=== PATIENT | female | born 1935 | race Caucasian/White ===

== ENCOUNTER 2017-05-27 18:42 | Inpatient (IN) ==
[2017-05-27] MEDS ORDERED: Acetaminophen 325 MG TABLET PO PRN (22:40)
[2017-05-27] MEDS ORDERED: Dextrose Gel 15 GM/37.5 ML TUBE PO PRN ×2 (22:44)
[2017-05-27] MEDS ORDERED: D5% in Water 1,000 ML IVC PRN (22:44)
[2017-05-27] MEDS ORDERED: *HR* Dextrose 50 % in Water (Syg) 50 ML SYRINGE IVP PRN (22:44)
--- NOTE | 2017-05-27 22:53 | Internal Med History&Physical ---
Date of Encounter: 05/27/17 Time of Encounter: 21:00 Assessment and Plan (1) Breast cancer Current visit: Yes Status: Acute Patient has breast cancer 10 years ago. Patient has a recent body with loss. CAT scan of abdomen and the pelvis on 05/22/17 shows most likely liver metastasis. - May consult oncology. Nonurgent. Daytime to call. - Consult palliative care - Continue supportive treatment. Qualifiers: Breast location: unspecified site of breast Estrogen receptor status: unspecified Patient sex: female Laterality: unspecified laterality Qualified Code(s): C50.919 - Malignant neoplasm of unspecified site of unspecified female breast (2) Rectal bleeding Current visit: Yes Status: Acute Patient has a rectal bleeding. Etiology is undetermined. Has a recent enema. - We will place patient on clear liquid diet. - IV fluid. - Closely monitor vitals and H&H - IV PPI twice a day - We will consult GI. (3) Excessive body weight loss Current visit: Yes Status: Acute Most likely due to late stage malignancy. We will consult dietitian. (4) Hypertension Current visit: Yes Status: Acute Continue home medications Qualifiers: Hypertension type: essential hypertension Qualified Code(s): I10 - Essential (primary) hypertension (5) Diabetes Current visit: Yes Status: Acute Will place patient on low-dose sliding-scale coverage Qualifiers: Diabetes mellitus type: type 2 Diabetes mellitus complication status: without complication Diabetes mellitus halfway insulin use: without reject opener and filler use Qualified Code(s): E11.9 - Type 2 diabetes mellitus without complications (6) UTI (urinary tract infection) Current visit: Yes Status: Acute Patient has minimal symptoms. Will continue Rocephin. Follow-up urine culture. Qualifiers: Urinary tract infection type: acute cystitis Hematuria presence: without hematuria Qualified Code(s): N30.00 - Acute cystitis without hematuria (7) Leukocytosis Current visit: Yes Status: Acute Patient has no fever. No signs of infection except mild UTI. Probably reactive. Continue follow-up CBC. Continue Rocephin. Qualifiers: Leukocytosis type: unspecified Qualified Code(s): D72.829 - Elevated white blood cell count, unspecified (8) DVT prophylaxis Current visit: Yes Status: Acute EPCD. No anti-coagulation because of rectal bleeding Internal Medicine - H&P: HPI Chief complaint: Rectal bleeding Admitted From: Home Plans for Post Hospital Care: Home History of present illness: Ms. Dumont is a 81 year old female with history of diabetes, hypertension, hyperlipidemia, breast cancer, and uterus cancer, presented to [facility] emergency room for rectal bleeding. Patient has constipation and was given enema yesterday in [facility] emergency room. Patient was found rectal bleeding with dark blood with clotting since today. The blood is mixed with stool. Patient denies abdominal pain, nausea, or vomiting. No fever. Patient has recent UTI and was treated with Rocephin by [facility]. Patient to report 50 pound body weight loss in last 2 months, with decreased appetite. Past Med Surg Social Fam HX - Past Medical History Medical history: diabetes, hypertension, malignancy - Past Surgical History Surgical History: hysterectomy - Social History Smokeless Tobacco Status: No Alcohol use: none - Family History Mother History Unknown: Yes Internal Medicine - H&P: Meds Doxycycline Monohydrate [Avidoxy] 100 mg PO BID 05/27/17 [History] Lactobacillus Acidophilus/Pect [Acidophilus-Pectin Capsule] 2 each PO QID [History] Lisinopril [Zestril] 10 mg PO DAILY 05/27/17 [History] Simvastatin [Zocor] 40 mg PO HS 05/27/17 [History] All Systems PM: A 10-system review of systems was performed and is negative for pertinent findings except as documented above in the HPI. - Constitutional Vitals: Temp Pulse Resp BP 97.4 F L 86 15 130/72 05/27/17 21:26 05/27/17 21:26 05/27/17 21:26 05/27/17 21:26 General appearance: Present: A&O X 3, no acute distress, answers questions appropriately - Head Head exam: Present: atraumatic, normocephalic - Eye Eye exam: Present: PERRL, conjuntiva pink, sclera anicteric Pupils: Present: PERRL - Neck Neck exam general surgery: Present: supple, trachea midline. Absent: lymphadenopathy - Respiratory Respiratory exam: Present: CTAB. Absent: accessory muscle use, rales, rhonchi, wheezes - Cardiovascular Cardiovascular exam: Present: RRR, +S1, +S2. Absent: diastolic murmur, gallop, rubs, systolic murmur - GI/Abdominal GI/Abdominal exam: Present: normal bowel sounds, soft, no peritoneal signs. Absent: distended, tenderness - Extremities Exam Extremities exam: Present: warm, radial pulses palpable and symmetrical. Absent : calf tenderness, cyanotic, pedal edema - Neurological Exam Neurological exam: Present: CN II-XII intact, oriented X3, no focal deficits. Absent: pronater drift, facial droop, speech deficit - Skin Skin exam: Present: dry, intact
[2017-05-27 23:13] LABS: Basophils % 0.2 %; Eosinophils % 0.1 %; Hemoglobin 11.6 g/dL (11.5-15.4); Immature Granulocytes % 1.1 % (0-4); Lymphocytes # 1.1 K/mcL (0.6-4.6); Lymphocytes % 5.6 %; Mean Corpuscular HGB Conc 33.1 g/dL (31.6-35.5); Mean Corpuscular Hemoglobin 30.9 pg (28.0-33.3); Mean Corpuscular Volume 93.3 fL (83.0-100.0); Mean Platelet Volume 12.4 fL (9.4-12.4); Monocytes # 0.8 K/mcL (0.0-1.3); Neutrophils # 17.2 K/mcL (1.6-8.9); Platelet Count 144 K/mcL (140-400); Red Blood Count 3.75 M/mcL (3.82-4.97); Red Cell Distribution Width 17.2 % (11.5-14.5)
[2017-05-27 23:18] LABS: INR 2.1; Prothrombin Time 23.2 Seconds (9.4-12.1)
[2017-05-28 00:02] LABS: Albumin 2.2 g/dL (3.5-5.7); Albumin/Globulin Ratio 0.7 (1.1-2.2); Bilirubin,Total 3.2 mg/dL (0.3-1.0); Calcium 7.9 mg/dL (8.6-10.3); Globulin 3.2 g/dL (2.4-3.5); Potassium 4.6 mEq/L (3.5-5.1); Total Protein 5.4 g/dL (6.4-8.9)
[2017-05-28] MEDS: 0.9 % Sodium Chloride 1,000 ML IVC SCH ×2 (01:06→11:38)
[2017-05-28] MEDS: Pantoprazole 40 MG VIAL IVP SCH ×2 (05:18→17:29)
[2017-05-28 07:20] LABS: Basophils % 0.2 %; Eosinophils % 0.1 %; Hematocrit 32.9 % (35.3-44.9); Hemoglobin 10.5 g/dL (11.5-15.4); Immature Granulocytes % 1.6 % (0-4); Lymphocytes # 1.1 K/mcL (0.6-4.6); Lymphocytes % 5.9 %; Mean Corpuscular HGB Conc 31.9 g/dL (31.6-35.5); Mean Corpuscular Hemoglobin 30.1 pg (28.0-33.3); Mean Corpuscular Volume 94.3 fL (83.0-100.0); Monocytes # 0.8 K/mcL (0.0-1.3); Monocytes % 4.6 %; Platelet Count 124 K/mcL (140-400); Red Blood Count 3.49 M/mcL (3.82-4.97); Red Cell Distribution Width 17.3 % (11.5-14.5); Segmented Neutrophils % 87.6 %
[2017-05-28 07:33] LABS: Calcium 7.5 mg/dL (8.6-10.3); Magnesium 1.5 mg/dL (1.6-2.6); Potassium 4.7 mEq/L (3.5-5.1)
[2017-05-28] MEDS: Lactobacillus 1 EACH CAP.SPRINK PO SCH ×4 (07:37→22:02)
[2017-05-28] MEDS: cefTRIAXone 1,000 MG in Water for inj. (sterile) 10 ML IVP SCH (07:37)
[2017-05-28] MEDS: Insulin LISPRO 300 UNITS/3 ML VIAL SQ SCH ×4 (07:45→22:02)
[2017-05-28 09:25] LABS: INR 2.2; Prothrombin Time 24.3 Seconds (9.4-12.1)
[2017-05-28 09:34] LABS: Albumin 2.1 g/dL (3.5-5.7); Albumin/Globulin Ratio 0.7 (1.1-2.2); Bilirubin,Direct 1.6 mg/dL (0.0-0.2); Bilirubin,Total 2.6 mg/dL (0.3-1.0); Total Protein 5.1 g/dL (6.4-8.9)
--- NOTE | 2017-05-28 09:53 | Palliative - Consult Note ---
Date of Encounter: 05/28/17 Time of Encounter: 10:00 - Assessment and Plan (1) Counseling regarding advanced care planning and goals of care Current Visit: Yes Status: Acute Assessment and plan: Patient has hearing deficit making it difficult to communicate. Son, Neal was here, but left before I was able to meet with him. I spoke with him via phone, he described conversation with GI - and he thought this conversation was with the hospitalist overseeing her care, so he left. He did leave her hearing aid, so that is helping with communication, however, pt is wanting all information given to Neal. He will be returning to hospital tomorrow at 1100. I notified Dr. Olivarez, hospitalist regarding this matter. Patient states she has passport services Mon-Fri. States son does not work, and is living with her. Will f/u in am. (2) Constipation Current Visit: Yes Status: Acute Assessment and plan: Rectal bleeding has subsided. GI consult reviewed, she has been started on Lactulose BID. Monitor BM's. Labwork pending. Qualifiers: Constipation type: unspecified constipation type Qualified Code(s): K59.00 - Constipation, unspecified (3) Breast cancer Current Visit: Yes Status: Acute Qualifiers: Breast location: unspecified site of breast Estrogen receptor status: unspecified Patient sex: female Laterality: unspecified laterality Qualified Code(s): C50.919 - Malignant neoplasm of unspecified site of unspecified female breast (4) UTI (urinary tract infection) Current Visit: Yes Status: Acute Assessment and plan: Urine via straight cath obtained today. Currently on Ceftriaxone. Qualifiers: Urinary tract infection type: acute cystitis Hematuria presence: without hematuria Qualified Code(s): N30.00 - Acute cystitis without hematuria Palliative-CN HPI - Data of Consult Consult date: 05/28/17 Requesting Physician: Harris Olivarez Primary Care Provider: Anais Good, - Consult Narrative History of present illness: Ms. Dumont is a 81 year old female with a history of breast cancer 10 years ago who was transferred here from [facility], where she presented for rectal bleeding. By chart review, she has history of diabetes, hypertension, hyperlipidemia, breast cancer, and uterus cancer, Patient has constipation and was given enema yesterday in [facility] emergency room. Patient was found to have rectal bleeding with dark blood with clotting. Patient denies abdominal pain, nausea, or vomiting. She was recently diagnosied with UTI and was treated with Rocephin by Ana. Patient to report 50 pound body weight loss in last 2 months, with decreased appetite. CT results with innumerable densities to liver suspicious for metastatic disease. Upon my visit, she is resting quietly. Severe hearing deficit and has difficulty reading writing. No family is present. . CC: Harris Olivarez Past Med Surg Social Fam HX - Past Medical History Medical history: diabetes, hypertension, malignancy - Past Surgical History Surgical History: hysterectomy - Social History Smoking Status: Unknown if ever smoked Smokeless Tobacco Status: No Alcohol use: none Drug use: unknown - Family History Mother History Unknown: Yes Medications and Allergies Lactobacillus Acidophilus/Pect [Acidophilus-Pectin Capsule] 2 each PO QID [History] Lisinopril [Zestril] 10 mg PO DAILY 05/27/17 [History] Simvastatin [Zocor] 40 mg PO HS 05/27/17 [History] Aspirin [Lo-Dose Aspirin EC] 81 mg PO DAILY 05/28/17 [History] Potassium Chloride [Klor-Con Sprinkle] 10 meq PO BID 05/28/17 [History] 3 Allergy/AdvReac Type Severity Reaction Status Date / Time No Known Drug Allergies Allergy Abdominal Verified 05/28/17 00:55 Pain ROS unobtainable: other (Difficulty establishing r/t heariing and visual impairment) Palliative Care-Exam - Constitutional Vitals: Temp Pulse Resp BP Pulse Ox 98.2 F 82 16 118/72 94 05/28/17 07:48 05/28/17 07:48 05/28/17 07:48 05/28/17 07:48 05/28/17 07:48 General appearance: Present: no acute distress - Head Head Exam: Present: normal inspection, normocephalic - Eye Eye exam: Present: normal appearance - ENT ENT exam: Present: mucous membranes moist - Respiratory Respiratory exam: Present: decreased breath sounds, CTAB - Cardiovascular Cardiovascular exam: Present: +S1, +S2 - GI/Abdominal Exam GI/Abdominal exam: Present: normal bowel sounds, soft - Additional comments: Urine cloudy and pink tinged - straight cath just performed - Extremities Exam Additional comments: Purplish discoloration to toes and bottoms of feet, cool to touch - Neurological Exam Neurological exam: Present: alert, oriented X3, strengths equal and symetr throughout Additional comments: Difficult to follow commands r/t hearing deficit. - Skin Skin exam: Present: dry, pallor, warm Internal Medicine - CN: Reslt - Labs CBC & Chem 7: 05/28/17 06:52 05/28/17 06:52 Labs: Short CBC 05/27/17 05/28/17 Range/Units 23:02 06:52 WBC 19.3 H 18.2 H (4.3-11.1) K/mcL Hgb 11.6 10.5 L (11.5-15.4) g/dL Hct 35.0 L 32.9 L (35.3-44.9) % Plt Count 144 124 L (140-400) K/mcL Neutrophils # 17.2 H 16.0 H (1.6-8.9) K/mcL BMP 05/27/17 05/28/17 23:02 06:52 Sodium 132 L 134 L Potassium 4.6 4.7 Chloride 100 102 Carbon Dioxide 19 L 20 L BUN 44 H 46 H Creatinine 1.50 H 1.64 H Glucose 194 H 180 H Calcium 7.9 L 7.5 L Liver Function 05/27/17 05/28/17 Range/Units 23:02 09:04 Total Bilirubin 3.2 H 2.6 H (0.3-1.0) mg/dL Direct Bilirubin 1.6 H (0.0-0.2) mg/dL AST 267 H 198 H (13-39) Units/L ALT 122 H 117 H (7-52) Units/L Alkaline Phosphatase 574 H 483 H (34-104) Units/L Albumin 2.2 L 2.1 L (3.5-5.7) g/dL - ABG Interpretation ABG results: PT/INR, D-dimer PT 24.3 Seconds (9.4-12.1) H 05/28/17 09:04 Consult Discharge Plan - Plan Referrals: Anais Good CNP [Primary Care Provider] - Palliative Quality Palliative Quality: Screen for Code Status: NA (When family available), Screen for Goals of Care: NA, Screen for Pain: Yes, If Pain Regimen Started, Initiate Bowel Regimen: NA, Screen for Nausea/Vomitting: Yes Code Status: 05/27/17 22:40 Resuscitation Status: Active [RES] Routine Comment: Resuscitation Status: Full Code
--- NOTE | 2017-05-28 10:06 | Internal Med Progress Note ---
Date of Encounter: 05/28/17 Time of Encounter: 10:00 - Assessment and plan (1) Rectal bleeding Current Visit: Yes Status: Acute Assessment and plan: GI is consulted. Her hemoglobin did drop cardiograms since admission. She is also been receiving IV fluids. Continue to monitor her hemodynamics. Continue with IV PPI. Continue with IV fluids. (2) LICHA (acute kidney injury) Current Visit: Yes Status: Acute Assessment and plan: Continue with IV fluids. Check labs in the morning. Avoid nephrotoxins. Possibly multifactorial from her urinary tract infection versus volume loss from the rectal bleed. We will continue to monitor. (3) Breast cancer Current Visit: Yes Status: Acute Assessment and plan: Not exactly sure what the circumstances of this are. Hard to obtain any history from the patient. Based on documentation this is been diagnosed about 10 years ago. She now has metastasis as well. Palliative is following. Qualifiers: Breast location: unspecified site of breast Estrogen receptor status: unspecified Patient sex: female Laterality: unspecified laterality Qualified Code(s): C50.919 - Malignant neoplasm of unspecified site of unspecified female breast (4) Hypertension Current Visit: Yes Status: Acute Assessment and plan: Blood pressure is stable. I will hold her lisinopril given that acute kidney injury as well as the borderline blood pressure. Qualifiers: Hypertension type: essential hypertension Qualified Code(s): I10 - Essential (primary) hypertension (5) Diabetes Current Visit: Yes Status: Acute Assessment and plan: Continue with insulin sliding scale. Continue with Accu-Cheks. Qualifiers: Diabetes mellitus type: type 2 Diabetes mellitus complication status: without complication Diabetes mellitus intermediate project manager insulin use: without intermediate project manager use Qualified Code(s): E11.9 - Type 2 diabetes mellitus without complications (6) UTI (urinary tract infection) Current Visit: Yes Status: Acute Assessment and plan: Apparently she has been treated with ceftriaxone at the outside facility. She has been continued on that here. I will check a urinalysis in our system here. She does have an elevated white count. It is hard to obtain a history regarding urinary symptoms given her hearing difficulties. Qualifiers: Urinary tract infection type: acute cystitis Hematuria presence: without hematuria Qualified Code(s): N30.00 - Acute cystitis without hematuria (7) DVT prophylaxis Current Visit: Yes Status: Acute Assessment and plan: SCDs - Subjective Interval history: Patient was seen and examined. The patient unfortunately is very hard of hearing and does not have her hearing aids. I even tried writing some stuff on my phone to have some interaction with the patient but unfortunately she is also troubled with vision. She is admitted last night with rectal bleed. She is also admitted with a urinary tract infection. She has lost about 50 pounds based on documentation over very short period of time. She has a history of breast cancer with metastasis to liver. She has been afebrile. - Constitutional Vitals: Temp Pulse Resp BP Pulse Ox 98.2 F 82 16 118/72 94 05/28/17 07:48 05/28/17 07:48 05/28/17 07:48 05/28/17 07:48 05/28/17 07:48 General appearance: Present: A&O X 3, no acute distress, answers questions appropriately Exam: GEN: NAD. Very hard of hearing. CVS: RRR. S1, S2, No m/r/g RESP: CTAB ABD: Soft, NT, ND, +BS EXT: No edema. 2+ DP. No rashes NEURO: Nonfocal Internal Medicine: Result - Labs CBC & Chem 7: 05/28/17 06:52 05/28/17 06:52 Labs: Short CBC 05/27/17 05/28/17 Range/Units 23:02 06:52 WBC 19.3 H 18.2 H (4.3-11.1) K/mcL Hgb 11.6 10.5 L (11.5-15.4) g/dL Hct 35.0 L 32.9 L (35.3-44.9) % Plt Count 144 124 L (140-400) K/mcL Neutrophils # 17.2 H 16.0 H (1.6-8.9) K/mcL BMP 05/27/17 05/28/17 23:02 06:52 Sodium 132 L 134 L Potassium 4.6 4.7 Chloride 100 102 Carbon Dioxide 19 L 20 L BUN 44 H 46 H Creatinine 1.50 H 1.64 H Glucose 194 H 180 H Calcium 7.9 L 7.5 L Liver Function 05/27/17 05/28/17 Range/Units 23:02 09:04 Total Bilirubin 3.2 H 2.6 H (0.3-1.0) mg/dL Direct Bilirubin 1.6 H (0.0-0.2) mg/dL AST 267 H 198 H (13-39) Units/L ALT 122 H 117 H (7-52) Units/L Alkaline Phosphatase 574 H 483 H (34-104) Units/L Albumin 2.2 L 2.1 L (3.5-5.7) g/dL - ABG Interpretation ABG results: PT/INR, D-dimer PT 24.3 Seconds (9.4-12.1) H 05/28/17 09:04 - VTE Documentation of Mechanical Device: Intermittent pneumatic compression device Consult Discharge Plan - Plan Referrals: Anais Good, PROFESSOR OF FAMILY MEDICINE [Primary Care Provider] -
[2017-05-28 10:16] LABS: Bilirubin,Urine Moderate (Negative); Blood,Urine Large (Negative); Clarity,Urine Turbid (Clear); Glucose,Urine (UA) Normal (Normal); Ketones,Urine Trace mg/dL (Negative); Leukocyte Esterase,Urine Large (Negative); Nitrite,Urine Positive (Negative); PH,Urine 5.5 pH Units (5.0-8.0); Protein,Urine 100 mg/dL (Neg-Trace); Specific Gravity,Urine 1.024 (1.010-1.025); Urobilinogen,Urine Normal (Normal)
[2017-05-28 10:18] LABS: Bacteria,Urine Many per hpf (None-Few); Squamous Epithelial Cell,Urine Many per lpf (None-Few); WBC,Urine TNTC per hpf (0-3)
[2017-05-28 10:19] LABS: Color,Urine Brown (Yellow)
[2017-05-28 10:39] LABS: RBC,Urine 0-3 per hpf (0-3)
[2017-05-28 10:41] LABS: Granular Casts,Urine Present per lpf (None Seen); Hyaline Casts,Urine None Seen per lpf (None-Few); Yeast,Urine Present per hpf (None Seen)
[2017-05-28] MEDS ORDERED: Magnesium Oxide 400 MG TABLET PO STA (11:14)
--- NOTE | 2017-05-28 11:59 | Gastroenterology Consult Note ---
<En Lundberg Lesly - Last Filed: 05/28/17 11:51> Date of Encounter: 05/28/17 Time of Encounter: 10:50 - Assessment and plan (1) Rectal bleeding Current Visit: Yes Status: Acute Assessment and plan: Rectal bleeding likely due to trauma of enema and her constipation. Will hold on colonoscopy at this time. If rectal bleeding continues, will consider colonoscopy at that time. (2) Constipation Current Visit: Yes Status: Acute Assessment and plan: Rectal bleeding likely secondary to enema administration at [facility] ED due to constipation. Start lactulose. Qualifiers: Qualified Code(s): K59.00 - Constipation, unspecified (3) Breast cancer Current Visit: Yes Status: Acute Assessment and plan: CT A/P on 05/22 shows innumerable hypodensities in the liver most concerning for metastatic disease, cystic lesion in tail of pancreas and one in body of pancreas which could represent sequela of chronic pancreatitis or IPMN of pancreas. Will hold on EUS at this time. Qualifiers: Breast location: unspecified site of breast Estrogen receptor status: unspecified Patient sex: female Laterality: unspecified laterality Qualified Code(s): C50.919 - Malignant neoplasm of unspecified site of unspecified female breast (4) Elevated LFTs Current Visit: Yes Status: Acute Assessment and plan: LFTs elevated due to metastatic cancer. - Time Spent With Patient Total time spent is greater than 50% in coordination of care (as documented) at patient's floor/unit and/or counseling patient: GI History of Present Illness - Data of Consult Patient: new to practice Consult date: 05/28/17 Requesting Physician: Harris Olivarez - Consult Narrative Reason for consult: Rectal bleeding History of present illness: Ms. Dumont is a 81 year old female with PMHx of DM, HTN, HLD, breast cancer, uterine cancer who presented to [facility] ED for rectal bleeding and was given an enema. Pt is hard of hearing and visually impaired. She does not have her hearing aids and is unable to see well enough to read. History obtain from chart review and I spoke to her son on the phone. She reports rectal bleeding with dark blood and clots. She has been complaining of constipation, per her son , and that is why she was given an enema at the [facility] ED. She denies fever, chest pain, abdominal pain, nausea, vomiting, diarrhea, or constipation. She reports a 50 lbs weight loss in the past [address] A/P on 05/22 shows innumerable hypodensities in the liver most concerning for metastatic disease, cystic lesion in tail of pancreas and one in body of pancreas which could represent sequela of chronic pancreatitis or IPMN of pancreas. Procedures: None NSAIDs: ASA Anticoagulation: None Past Med Surg Social Fam HX - Past Medical History Medical history: diabetes, hypertension, malignancy - Past Surgical History Surgical History: hysterectomy - Social History Smoking Status: Unknown if ever smoked Smokeless Tobacco Status: No Alcohol use: none Drug use: unknown - Family History Mother History Unknown: Yes ROS unobtainable: other Review of Systems: pt unable to hear - Constitutional Vitals: Temp Pulse Resp BP Pulse Ox 97.6 F 75 16 121/73 94 05/28/17 11:37 05/28/17 11:37 05/28/17 11:37 05/28/17 11:37 05/28/17 11:37 General appearance: Present: cooperative, A&O X 3, no acute distress, answers questions appropriately - Head Head exam: Present: atraumatic, normocephalic - Eye Eye exam: Present: normal appearance, sclera anicteric - ENT ENT exam: Present: mucous membranes dry - Neck Neck exam general surgery: Present: normal inspection, trachea midline - Respiratory Respiratory exam: Present: CTAB. Absent: decreased breath sounds - Cardiovascular Cardiovascular exam: Present: RRR, +S1, +S2 - GI/Abdominal GI/Abdominal exam: Present: soft, no peritoneal signs. Absent: distended, firm , guarding, tenderness - Rectal Rectal exam: Present: deferred - Extremities Exam Extremities exam: Present: warm - Neurological Exam Neurological exam: Present: no focal deficits - Psychiatric Psychiatric exam: Present: normal affect, normal mood - Skin Skin exam: Present: dry, intact, normal color, warm Results - Labs CBC & Chem 7: 05/28/17 06:52 05/28/17 06:52 Labs: Last Result Calcium 7.5 mg/dL (8.6-10.3) L 05/28/17 06:52 Entire Visit Hgb 10.5 g/dL (11.5-15.4) L 05/28/17 06:52 Hct 32.9 % (35.3-44.9) L 05/28/17 06:52 PT 24.3 Seconds (9.4-12.1) H 05/28/17 09:04 Total Bilirubin 2.6 mg/dL (0.3-1.0) H 05/28/17 09:04 AST 198 Units/L (13-39) H 05/28/17 09:04 ALT 117 Units/L (7-52) H 05/28/17 09:04 - ABG ABG results: PT/INR, D-dimer PT 24.3 Seconds (9.4-12.1) H 05/28/17 09:04 Consult Discharge Plan - Plan Referrals: Anais Good, HEAD OF HISTORY [Primary Care Provider] - <Angelica Obrien - Last Filed: 05/28/17 17:50> Date of Encounter: 05/28/17 Time of Encounter: 13:30 - Time Spent With Patient Total time spent is greater than 50% in coordination of care (as documented) at patient's floor/unit and/or counseling patient: GI History of Present Illness - Data of Consult Requesting Physician: Harris Olivarez - Consult Narrative History of present illness: Ms. Dumont is a 81 year old female - Constitutional Vitals: Temp Pulse Resp BP Pulse Ox 97.3 F L 82 16 91/53 97 05/28/17 15:20 05/28/17 15:20 05/28/17 15:20 05/28/17 15:20 05/28/17 15:20 Results - Labs CBC & Chem 7: 05/28/17 06:52 05/28/17 06:52 Labs: Last Result Calcium 7.5 mg/dL (8.6-10.3) L 05/28/17 06:52 Entire Visit Hgb 10.5 g/dL (11.5-15.4) L 05/28/17 06:52 Hct 32.9 % (35.3-44.9) L 05/28/17 06:52 PT 24.3 Seconds (9.4-12.1) H 05/28/17 09:04 Total Bilirubin 2.6 mg/dL (0.3-1.0) H 05/28/17 09:04 AST 198 Units/L (13-39) H 05/28/17 09:04 ALT 117 Units/L (7-52) H 05/28/17 09:04 - ABG ABG results: PT/INR, D-dimer PT 24.3 Seconds (9.4-12.1) H 05/28/17 09:04 - Attending Attestation I examined this patient and my medical decision-making was reviewed with the Resident Physician. I agree with the documented findings, disposition and treatment plan as described except to the extent set forth below.
[2017-05-28] MEDS: Lactulose Oral Soln 20 GM/30 ML UDC PO SCH ×2 (12:43→22:02)
[2017-05-29 04:47] LABS: Basophils % 0.2 %; Eosinophils # 0.1 K/mcL (0.0-0.6); Eosinophils % 0.7 %; Hematocrit 31.2 % (35.3-44.9); Hemoglobin 10.2 g/dL (11.5-15.4); Lymphocytes % 7.3 %; Mean Corpuscular HGB Conc 32.7 g/dL (31.6-35.5); Mean Corpuscular Hemoglobin 30.6 pg (28.0-33.3); Mean Corpuscular Volume 93.7 fL (83.0-100.0); Mean Platelet Volume 12.5 fL (9.4-12.4); Monocytes # 0.8 K/mcL (0.0-1.3); Monocytes % 5.7 %; Platelet Count 100 K/mcL (140-400); Red Blood Count 3.33 M/mcL (3.82-4.97); Red Cell Distribution Width 17.5 % (11.5-14.5); Segmented Neutrophils % 84.1 %
[2017-05-29 05:04] LABS: Calcium 7.4 mg/dL (8.6-10.3); Potassium 4.6 mEq/L (3.5-5.1)
[2017-05-29] MEDS: Pantoprazole 40 MG VIAL IVP SCH (06:23)
[2017-05-29] MEDS: Insulin LISPRO 300 UNITS/3 ML VIAL SQ SCH ×4 (08:09→20:23)
[2017-05-29] MEDS: Lactulose Oral Soln 20 GM/30 ML UDC PO SCH ×2 (08:11→19:27)
[2017-05-29] MEDS: Lactobacillus 1 EACH CAP.SPRINK PO SCH ×4 (08:11→19:27)
[2017-05-29] MEDS: cefTRIAXone 1,000 MG in Water for inj. (sterile) 10 ML IVP SCH (08:11)
[2017-05-29] MEDS ORDERED: 0.9 % Sodium Chloride 1,000 ML IVC ONE (08:55)
--- NOTE | 2017-05-29 08:59 | Internal Med Progress Note ---
Date of Encounter: 05/29/17 Time of Encounter: 09:00 - Assessment and plan (1) Rectal bleeding Current Visit: Yes Status: Acute Assessment and plan: GI is consulted. Her hemoglobin is stable today. Hemoglobin was 10.5 yesterday. Today it is 10.2. No plans for any GI intervention as they believe this is likely trauma from enema.. Continue to monitor her hemodynamics. Stop IV PPI. (2) LICHA (acute kidney injury) Current Visit: Yes Status: Acute Assessment and plan: This has worsened today. We will give her a liter of normal saline bolus given the low blood pressure. We will keep on 100 mL an hour normal saline. Not exactly sure if she was receiving this. Check labs in the morning. Avoid nephrotoxins. If continues to worsen we will check a renal ultrasound. May need to consult nephrology. Possibly multifactorial from her urinary tract infection versus volume loss from the rectal bleed. We will continue to monitor. 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 Palliative his family today. Based on documentation this is been diagnosed about 10 years ago. Qualifiers: Breast location: unspecified site of breast Estrogen receptor status: unspecified Patient sex: female Laterality: unspecified laterality Qualified Code(s): C50.919 - Malignant neoplasm of unspecified site of unspecified female breast (4) Hypertension Current Visit: Yes Status: Acute Assessment and plan: Blood pressure is on the lower side. Continue to hold lisinopril. 1 L bolus this morning. Qualifiers: Hypertension type: essential hypertension Qualified Code(s): I10 - Essential (primary) hypertension (5) Diabetes Current Visit: Yes Status: Acute Assessment and plan: Continue with insulin sliding scale. Continue with Accu-Cheks. Qualifiers: Diabetes mellitus type: type 2 Diabetes mellitus complication status: without complication Diabetes mellitus residential insulin use: without medical terminologist use Qualified Code(s): E11.9 - Type 2 diabetes mellitus without complications (6) UTI (urinary tract infection) Current Visit: Yes Status: Acute Assessment and plan: Apparently she has been treated with ceftriaxone at the outside facility. Ceftriaxone was continued here. Her urinalysis still looks dirty. We will follow up the cultures. White count is improving.. Qualifiers: Urinary tract infection type: acute cystitis Hematuria presence: without hematuria Qualified Code(s): N30.00 - Acute cystitis without hematuria (7) DVT prophylaxis Current Visit: Yes Status: Acute Assessment and plan: SCDs - Subjective Interval history: Patient was seen and examined. No acute events. She was seen by GI and palliative yesterday. There is no plans for any GI intervention. Family meeting is planned today. She has been afebrile. She feels well. She has lost about 50 pounds based on documentation over very short period of time. She has a history of breast cancer with metastasis to liver. She has been afebrile. - Constitutional Vitals: Temp Pulse Resp BP Pulse Ox 98.3 F 61 13 93/58 96 05/29/17 07:30 05/29/17 07:30 05/29/17 07:30 05/29/17 07:30 05/29/17 07:30 General appearance: Present: A&O X 3, no acute distress, answers questions appropriately Exam: GEN: NAD. CVS: RRR. S1, S2, No m/r/g RESP: CTAB ABD: Soft, NT, ND, +BS EXT: No edema. 2+ DP. No rashes NEURO: Nonfocal Internal Medicine: Result - Labs CBC & Chem 7: 05/29/17 04:23 05/29/17 04:23 Labs: Short CBC 05/29/17 Range/Units 04:23 WBC 14.3 H (4.3-11.1) K/mcL Hgb 10.2 L (11.5-15.4) g/dL Hct 31.2 L (35.3-44.9) % Plt Count 100 L (140-400) K/mcL Neutrophils # 12.0 H (1.6-8.9) K/mcL BMP 05/29/17 04:23 Sodium 134 L Potassium 4.6 Chloride 105 Carbon Dioxide 16 L BUN 52 H Creatinine 1.75 H Glucose 156 H Calcium 7.4 L Liver Function 05/28/17 Range/Units 09:04 Total Bilirubin 2.6 H (0.3-1.0) mg/dL Direct Bilirubin 1.6 H (0.0-0.2) mg/dL AST 198 H (13-39) Units/L ALT 117 H (7-52) Units/L Alkaline Phosphatase 483 H (34-104) Units/L Albumin 2.1 L (3.5-5.7) g/dL Urine 05/28/17 Range/Units 09:55 Urine Color Brown (Yellow) Urine Clarity Turbid A (Clear) Urine pH 5.5 (5.0-8.0) pH Units Ur Specific [place] 1.024 (1.010-1.025) Urine Protein 100 H (Neg-Trace) mg/dL Urine Glucose (UA) Normal (Normal) mg/dL - ABG Interpretation ABG results: PT/INR, D-dimer PT 24.3 Seconds (9.4-12.1) H 05/28/17 09:04 - VTE Documentation of Mechanical Device: Intermittent pneumatic compression device Consult Discharge Plan - Plan Referrals: Anais Good CNP [Primary Care Provider] -
[2017-05-29] MEDS: 0.9 % Sodium Chloride 1,000 ML IVC SCH (10:25)
--- NOTE | 2017-05-29 11:43 | Palliative Progress Note ---
Date of Encounter: 05/29/17 Time of Encounter: 11:30 - Assessment and plan (1) Counseling regarding advanced care planning and goals of care Current Visit: Yes Status: Acute Assessment and plan: Long discussion with pt/son relaying information regarding CT scan results. They were both quite emotional. Son discussed that Dr. Gil/Dr. Patiño cared for her with her breast cancer 10 years ago and she had radiation, but did not desire chemotherapy. They would like to see/discuss with oncology findings. I did tell them that any treatments options may be limited by her performance status. Karnofsky performance scale of 40-50%. Consulted oncology and discussed pt case with Christine Bronson, EMMA [facility]. Explained although pt alert/oriented, she does want son Neal involved in conversations/decisions. Nael phone # [phone]. I did not discuss code status today - they were quite overwhelmed with conversation, but will continue to see and have discussions. Notified Dr. Olivarez. (2) Constipation Current Visit: Yes Status: Acute Assessment and plan: Continues with Lactulose BID. Monitor. Qualifiers: Constipation type: unspecified constipation type Qualified Code(s): K59.00 - Constipation, unspecified (3) Breast cancer Current Visit: Yes Status: Acute Qualifiers: Breast location: unspecified site of breast Estrogen receptor status: unspecified Patient sex: female Laterality: unspecified laterality Qualified Code(s): C50.919 - Malignant neoplasm of unspecified site of unspecified female breast (4) UTI (urinary tract infection) Current Visit: Yes Status: Acute Assessment and plan: Continues with IV antibiotics per hospitalist - final culture results pending. Qualifiers: Urinary tract infection type: acute cystitis Hematuria presence: without hematuria Qualified Code(s): N30.00 - Acute cystitis without hematuria - Time Spent With Patient Total time spent is greater than 50% in coordination of care (as documented) at patient's floor/unit and/or counseling patient: 25 - 35 minutes - Subjective Interval history: Patient awake and alert. Son at bedside. She denies any pain or discomfort other than tailbone. Continues with IV Antibiotic/fluids for UTI/LICHA. - Constitutional Vitals: Abnormal lab results WBC 14.3 K/mcL (4.3-11.1) H 05/29/17 04:23 RBC 3.33 M/mcL (3.82-4.97) L 05/29/17 04:23 Hgb 10.2 g/dL (11.5-15.4) L 05/29/17 04:23 Hct 31.2 % (35.3-44.9) L 05/29/17 04:23 RDW 17.5 % (11.5-14.5) H 05/29/17 04:23 Plt Count 100 K/mcL (140-400) L 05/29/17 04:23 MPV 12.5 fL (9.4-12.4) H 05/29/17 04:23 Neutrophils # 12.0 K/mcL (1.6-8.9) H 05/29/17 04:23 PT 24.3 Seconds (9.4-12.1) H 05/28/17 09:04 Sodium 134 mEq/L (136-145) L 05/29/17 04:23 Carbon Dioxide 16 mEq/L (23-29) L 05/29/17 04:23 BUN 52 mg/dL (8-23) H 05/29/17 04:23 Creatinine 1.75 mg/dL (0.60-1.20) H 05/29/17 04:23 Est GFR ( Amer) 34 (> 60) L 05/29/17 04:23 Est GFR (Non-Af Amer) 28 (> 60) L 05/29/17 04:23 BUN/Creatinine Ratio 30 (6-26) H 05/29/17 04:23 Glucose 156 mg/dL (70-105) H 05/29/17 04:23 Calcium 7.4 mg/dL (8.6-10.3) L 05/29/17 04:23 Magnesium 1.5 mg/dL (1.6-2.6) L 05/28/17 06:52 Total Bilirubin 2.6 mg/dL (0.3-1.0) H 05/28/17 09:04 Direct Bilirubin 1.6 mg/dL (0.0-0.2) H 05/28/17 09:04 AST 198 Units/L (13-39) H 05/28/17 09:04 ALT 117 Units/L (7-52) H 05/28/17 09:04 Alkaline Phosphatase 483 Units/L (34-104) H 05/28/17 09:04 Serum Total Protein 5.1 g/dL (6.4-8.9) L 05/28/17 09:04 Albumin 2.1 g/dL (3.5-5.7) L 05/28/17 09:04 Albumin/Globulin Ratio 0.7 (1.1-2.2) L 05/28/17 09:04 CA 19-9 Antigen 52825 U/mL (0-37) H 05/28/17 09:04 Urine Clarity Turbid (Clear) A 05/28/17 09:55 Urine Protein 100 mg/dL (Neg-Trace) H 05/28/17 09:55 Urine Ketones Trace mg/dL (Negative) H 05/28/17 09:55 Urine Blood Large (Negative) H 05/28/17 09:55 Urine Nitrite Positive (Negative) A 05/28/17 09:55 Urine Bilirubin Moderate (Negative) H 05/28/17 09:55 Ur Leukocyte Esterase Large (Negative) H 05/28/17 09:55 Urine Microscopic WBC TNTC per hpf (0-3) H 05/28/17 09:55 Ur Squamous Epith Cells Many per lpf (None-Few) H 05/28/17 09:55 Urine Bacteria Many per hpf (None-Few) H 05/28/17 09:55 Granular Casts Present per lpf (None Seen) H 05/28/17 09:55 Urine Yeast Present per hpf (None Seen) H 05/28/17 09:55 General appearance: Present: no acute distress - Respiratory Respiratory exam: Present: decreased breath sounds, CTAB - Cardiovascular Cardiovascular exam: Present: +S1, +S2 - GI/Abdominal GI/Abdominal exam: Present: distended, normal bowel sounds, soft - Extremities Exam Extremities exam: Present: normal capillary refill, normal inspection - Neurological Exam Neurological exam: Present: alert, oriented X3, strengths equal and symetr throughout - Skin Skin exam: Present: dry, pallor, warm Palliative Quality Palliative Quality: Screen for Code Status: NA (When family available), Screen for Goals of Care: NA, Screen for Pain: Yes, If Pain Regimen Started, Initiate Bowel Regimen: NA, Screen for Nausea/Vomitting: Yes Code Status: 05/27/17 22:40 Resuscitation Status: Active [RES] Routine Comment: Resuscitation Status: Full Code - Labs CBC & Chem 7: 05/29/17 04:23 05/29/17 04:23 Labs: Laboratory Results - last 24 hr 05/28/17 05/28/17 05/28/17 07:43 09:04 09:04 WBC RBC Hgb Hct MCV MCH MCHC RDW Plt Count MPV Immature Gran % Seg Neutrophils % Lymphocytes % Monocytes % Eosinophils % Basophils % Neutrophils # Lymphocytes # Monocytes # Eosinophils # Basophils # Sodium Potassium Chloride Carbon Dioxide BUN Creatinine Est GFR ( Amer) Est GFR (Non-Af Amer) BUN/Creatinine Ratio Glucose POC Glucose 180 H Calculated Osmolality Calcium Tumor Marker AFP 2 CA 19-9 Antigen 30338 H 05/28/17 05/28/17 05/28/17 11:34 16:47 21:16 WBC RBC Hgb Hct MCV MCH MCHC RDW Plt Count MPV Immature Gran % Seg Neutrophils % Lymphocytes % Monocytes % Eosinophils % Basophils % Neutrophils # Lymphocytes # Monocytes # Eosinophils # Basophils # Sodium Potassium Chloride Carbon Dioxide BUN Creatinine Est GFR ( Amer) Est GFR (Non-Af Amer) BUN/Creatinine Ratio Glucose POC Glucose 111 H 104 H 121 H Calculated Osmolality Calcium Tumor Marker AFP CA 19-9 Antigen 05/29/17 05/29/17 05/29/17 04:23 04:23 07:36 WBC 14.3 H RBC 3.33 L Hgb 10.2 L Hct 31.2 L MCV 93.7 MCH 30.6 MCHC 32.7 RDW 17.5 H Plt Count 100 L MPV 12.5 H Immature Gran % 2.0 Seg Neutrophils % 84.1 Lymphocytes % 7.3 Monocytes % 5.7 Eosinophils % 0.7 Basophils % 0.2 Neutrophils # 12.0 H Lymphocytes # 1.0 Monocytes # 0.8 Eosinophils # 0.1 Basophils # 0.0 Sodium 134 L Potassium 4.6 Chloride 105 Carbon Dioxide 16 L BUN 52 H Creatinine 1.75 H Est GFR ( Amer) 34 L Est GFR (Non-Af Amer) 28 L BUN/Creatinine Ratio 30 H Glucose 156 H POC Glucose 158 H Calculated Osmolality 295 Calcium 7.4 L Tumor Marker AFP CA 19-9 Antigen 05/29/17 11:16 WBC RBC Hgb Hct MCV MCH MCHC RDW Plt Count MPV Immature Gran % Seg Neutrophils % Lymphocytes % Monocytes % Eosinophils % Basophils % Neutrophils # Lymphocytes # Monocytes # Eosinophils # Basophils # Sodium Potassium Chloride Carbon Dioxide BUN Creatinine Est GFR ( Amer) Est GFR (Non-Af Amer) BUN/Creatinine Ratio Glucose POC Glucose 73 Calculated Osmolality Calcium Tumor Marker AFP CA 19-9 Antigen - ABG Interpretation ABG results: PT/INR, D-dimer PT 24.3 Seconds (9.4-12.1) H 05/28/17 09:04 Consult Discharge Plan - Plan Referrals: Anais Good CNP [Primary Care Provider] -
--- NOTE | 2017-05-29 16:55 | Oncology Inp Consult Note ---
Date of Encounter: 05/29/17 Time of Encounter: 12:00 Assessment and Plan (1) Breast cancer Status: Acute Assessment and plan: Patient had received Rx more than 10 yrs ago surgery, radiation therapy per patient. [facility] records fro,m old system Liver lesions--diffuse/multiple reviewed imaging/GI recomendations. CA19-9 elevation-r/o pancreatic/biliary primary--CT guided bx. Discussed with patient who seemed agreeable. Discussed with son Neal on the phone who wants biopsy done despite the fact that she may not be a candidate for chemotherapy. Bleeding monitor hgb/hct. GI consult recommendations reviewed. Hx breast/uterine cancer Rx in the past. RT effusion, not symptomatic currently. UTI on antibiotics. Plan reviewed with patient and son Neal on the phone. Qualifiers: Breast location: unspecified site of breast Estrogen receptor status: unspecified Patient sex: female Laterality: unspecified laterality Qualified Code(s): C50.919 - Malignant neoplasm of unspecified site of unspecified female breast - Data of Consult Requesting Physician: Harris Olivarez Primary Care Provider: Anais Good, - Consult Narrative Reason for consult: Breast cancer, liver lesions History of present illness: Ms. Dumont is a 81 year old female with a medical history significant for diabetes mellitus, hypertension, hyperlipidemia, prior history of breast cancer and the uterus cancer, she was treated for breast cancer with surgery and she took radiation therapy patient reports that she did not take any chemotherapy in the past had followed up with Dr. Patiño, hospitalized due to rectal bleeding when she is transferred from [facility]. Patient is very hard of hearing and is able to understand and communicate with the help of hearing aid. There is also history significant for weight loss, poor functional status recent diagnosis of urinary tract infection and antibiotic treatment. 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 Moderate right-sided pleural effusion. Patient does not have any abdominal pain. She denies any other complaints. In culture had shown gram-negative rods, enterococcus species. Tumor markers CA -19-9 is elevated up to 21,000. Liver function tests, bilirubin elevated at 2.6 renal insufficiency with creatinine at 1.7. Past Med Surg Social Fam HX - Past Medical History Medical history: diabetes, hypertension, malignancy - Past Surgical History Surgical History: hysterectomy - Social History Smoking Status: Unknown if ever smoked Smokeless Tobacco Status: No Alcohol use: none Drug use: unknown - Family History Mother History Unknown: Yes Medications and Allergies Lactobacillus Acidophilus/Pect [Acidophilus-Pectin Capsule] 2 each PO QID [History] Lisinopril [Zestril] 10 mg PO DAILY 05/27/17 [History] Simvastatin [Zocor] 40 mg PO HS 05/27/17 [History] Aspirin [Lo-Dose Aspirin EC] 81 mg PO DAILY 05/28/17 [History] Potassium Chloride [Klor-Con Sprinkle] 10 meq PO BID 05/28/17 [History] 3 Allergy/AdvReac Type Severity Reaction Status Date / Time No Known Drug Allergies Allergy Abdominal Verified 05/28/17 00:55 Pain Review of systems: as in HPI Oncology - Exam - Constitutional Vitals: Temp Pulse Resp BP Pulse Ox 97.6 F 88 14 110/64 98 05/29/17 15:05 05/29/17 15:05 05/29/17 15:05 05/29/17 15:05 05/29/17 15:05 General appearance: no acute distress - Head Head exam: Present: atraumatic, normal inspection - Eye Eye exam: Present: scleral icterus, sclera anicteric - ENT ENT exam: Present: mucous membranes moist - Neck Additional comments: NO SUPRACLAV/NK ADENOPATHY - Respiratory Respiratory exam: Present: CTAB - Cardiovascular Cardiovascular exam: Present: +S1, +S2 - GI/Abdominal GI/Abdominal exam: Present: normal bowel sounds, soft - Extremities Exam Extremities exam: Present: pedal edema - Neurological Exam Neurological exam: Present: alert, oriented X3 Additional comments: HEARING DEFICIT - Psychiatric Psychiatric exam: Present: normal affect Oncology - Results Labs: Short CBC 05/29/17 Range/Units 04:23 WBC 14.3 H (4.3-11.1) K/mcL Hgb 10.2 L (11.5-15.4) g/dL Hct 31.2 L (35.3-44.9) % Plt Count 100 L (140-400) K/mcL Neutrophils # 12.0 H (1.6-8.9) K/mcL BMP 05/29/17 04:23 Sodium 134 L Potassium 4.6 Chloride 105 Carbon Dioxide 16 L BUN 52 H Creatinine 1.75 H Glucose 156 H Calcium 7.[address] ABDOMEN FINDINGS REVIEWED Consult Discharge Plan - Plan Referrals: Anais Good CNP [Primary Care Provider] -
[2017-05-30] MEDS: 0.9 % Sodium Chloride 1,000 ML IVC SCH ×3 (00:47→22:43)
[2017-05-30 07:58] LABS: Basophils % 0.1 %; Eosinophils # 0.3 K/mcL (0.0-0.6); Eosinophils % 1.7 %; Hematocrit 28.5 % (35.3-44.9); Hemoglobin 9.4 g/dL (11.5-15.4); Immature Granulocytes % 1.6 % (0-4); Immature Platelets 8.2 % (1.1-6.1); Lymphocytes # 1.3 K/mcL (0.6-4.6); Lymphocytes % 8.1 %; Mean Corpuscular Hemoglobin 30.5 pg (28.0-33.3); Mean Platelet Volume 12.9 fL (9.4-12.4); Monocytes # 1.4 K/mcL (0.0-1.3); Monocytes % 8.4 %; Neutrophils # 13.3 K/mcL (1.6-8.9); Red Blood Count 3.08 M/mcL (3.82-4.97); Red Cell Distribution Width 17.6 % (11.5-14.5); Segmented Neutrophils % 80.1 %
[2017-05-30 08:01] LABS: Calcium 7.2 mg/dL (8.6-10.3)
[2017-05-30 08:05] LABS: Mean Corpuscular Volume 92.5 fL (83.0-100.0); Platelet Count 79 K/mcL (140-400)
[2017-05-30] MEDS: Lactobacillus 1 EACH CAP.SPRINK PO SCH ×4 (08:15→22:38)
[2017-05-30] MEDS: Lactulose Oral Soln 20 GM/30 ML UDC PO SCH ×2 (08:15→22:38)
[2017-05-30] MEDS: Insulin LISPRO 300 UNITS/3 ML VIAL SQ SCH ×4 (08:26→22:07)
--- NOTE | 2017-05-30 09:47 | Internal Med Progress Note ---
Date of Encounter: 05/30/17 Time of Encounter: 09:30 - Assessment and plan (1) Rectal bleeding Current Visit: Yes Status: Acute Assessment and plan: GI is consulted. Her hemoglobin is stable Hemoglobin down a little to 9.4 this morning. It was 11.6 on admission.. No plans for any GI intervention as they believe this is likely trauma from enema.. Continue to monitor her hemodynamics. Decrease IV fluid rate to 75 mL an hour. (2) Metastatic cancer Current Visit: Yes Status: Acute Assessment and plan: The patient has metastatic lesions on the liver and possibly the pancreas. Primary is possibly depressed. Could be another primary. The family wants to proceed with a biopsy. Unfortunately this could not be done today through IR due to elevated INR. The plan is to have FFP transfused tomorrow which I have ordered to be transfused at 4 AM. We will check PT/INR tomorrow at 8 AM. I spoke to her already. They are willing to do the procedure tomorrow. (3) Breast cancer Current Visit: Yes Status: Acute Assessment and plan: Seems to have metastasis to liver cancer or a new primary. Seen by oncology and palliative. Based on documentation this is been diagnosed about 10 years ago. Qualifiers: Breast location: unspecified site of breast Estrogen receptor status: unspecified Patient sex: female Laterality: unspecified laterality Qualified Code(s): C50.919 - Malignant neoplasm of unspecified site of unspecified female breast (4) LICHA (acute kidney injury) Current Visit: Yes Status: Acute Assessment and plan: This has improved a little today. Blood pressure is better today. Decrease IV fluid rate to 75 mL an hour from 100 mL an hour. Check labs in the morning. Avoid nephrotoxins. If continues to worsen we will check a renal ultrasound. May need to consult nephrology. Possibly multifactorial from her urinary tract infection versus volume loss from the rectal bleed. We will continue to monitor. (5) Hypertension Current Visit: Yes Status: Acute Assessment and plan: Blood pressure is better this morning. Continue to hold lisinopril. Continue IV fluids. Qualifiers: Hypertension type: essential hypertension Qualified Code(s): I10 - Essential (primary) hypertension (6) Diabetes Current Visit: Yes Status: Acute Assessment and plan: Continue with insulin sliding scale. Continue with Accu-Cheks. Qualifiers: Diabetes mellitus type: type 2 Diabetes mellitus complication status: without complication Diabetes mellitus director long term care insulin use: without custodial use Qualified Code(s): E11.9 - Type 2 diabetes mellitus without complications (7) UTI (urinary tract infection) Current Visit: Yes Status: Acute Assessment and plan: Continue ceftriaxone. Cultures are positive for Enterobacter and enterococcus which are susceptible to ceftriaxone. Oral antibiotics at discharge. Day 3 of antibiotics. Qualifiers: Urinary tract infection type: acute cystitis Hematuria presence: without hematuria Qualified Code(s): N30.00 - Acute cystitis without hematuria (8) DVT prophylaxis Current Visit: Yes Status: Acute Assessment and plan: SCDs. INR is 2.2 likely secondary to some liver failure from liver metastases. - Subjective Interval history: Patient was seen and examined. No acute events. She was seen by oncology yesterday and the patient was to proceed with liver biopsy. Spoke to IR this morning we will do the procedure as long as her INR is 1.5 or less. She feels well. She has lost about 50 pounds based on documentation over very short period of time. She has a history of breast cancer with metastasis to liver. She has been afebrile. - Constitutional Vitals: Temp Pulse Resp BP Pulse Ox 97.6 F 93 15 127/81 95 05/30/17 06:35 05/30/17 06:35 05/30/17 06:35 05/30/17 06:35 05/30/17 06:35 General appearance: Present: A&O X 3, no acute distress, answers questions appropriately Exam: GEN: NAD. CVS: RRR. S1, S2, No m/r/g RESP: CTAB ABD: Soft, NT, ND, +BS EXT: No edema. 2+ DP. No rashes NEURO: Nonfocal Internal Medicine: Result - Labs CBC & Chem 7: 05/30/17 07:33 05/30/17 07:33 Labs: Short CBC 05/30/17 Range/Units 07:33 WBC 16.6 H (4.3-11.1) K/mcL Hgb 9.4 L (11.5-15.4) g/dL Hct 28.5 L (35.3-44.9) % Plt Count 79 L (140-400) K/mcL Neutrophils # 13.3 H (1.6-8.9) K/mcL BMP 05/30/17 07:33 Sodium 137 Potassium 5.0 Chloride 112 H Carbon Dioxide 15 L BUN 48 H Creatinine 1.60 H Glucose 146 H Calcium 7.2 L - ABG Interpretation ABG results: PT/INR, D-dimer PT 24.3 Seconds (9.4-12.1) H 05/28/17 09:04 - VTE Documentation of Mechanical Device: Intermittent pneumatic compression device Consult Discharge Plan - Plan Referrals: Anais Good, LAZARO [Primary Care Provider] -
--- NOTE | 2017-05-30 10:03 | Oncology Inp Progress Note ---
Date of Encounter: 05/30/17 Time of Encounter: 10:03 (1) Breast cancer Current Visit: Yes Status: Acute Assessment and plan: Patient had received Rx more than 10 yrs ago for history of breast/uterine cancer including surgery and radiation therapy per patient. Will retrieve records from old system Liver lesions--diffuse/multiple reviewed imaging/GI recommendations. CA19-9 elevation-r/o pancreatic/biliary primary--recommended CT guided bx liver lesion , discussed with hospitalist who will work with IR for further recommendation, platelets 79, INR 2.2. Discussed procedure with patient who seemed agreeable, she would like to discuss details of procedure further with IR. Per previous note by Dr. Bray she had discussed with patients son Neal on the phone who wants biopsy done despite the fact that she may not be a candidate for chemotherapy due to performance status. This was also discussed with patient today who understands this as well. Patient currently ECOG performance status 4, she relates poor performance due to bilateral knee pain and was previously able to transfer from bed/chair and ambulate short distances, recommend PT/OT eval and treat. Rectal bleeding monitor hgb/hct. GI consult recommendations reviewed. Will order anemia workup including reticulocyte count, B12, folate, iron panel, ferritin, SPEP, free light chains and peripheral smear. RT effusion, not symptomatic currently. Neutrophilia predominant leukocytosis. UTI on antibiotics. Thrombocytopenia, platelets 79. Receving FFP prior to biospy tomorrow. Qualifiers: Breast location: unspecified site of breast Estrogen receptor status: unspecified Patient sex: female Laterality: unspecified laterality Qualified Code(s): C50.919 - Malignant neoplasm of unspecified site of unspecified female breast Oncology: Subj Interval history: Patient resting comfortably, denies pain. Afebrile and non toxic appearing. Discussed liver biopsy procedure at length with patient and confirmed again that patient wishes to proceed with biopsy. - Constitutional Vitals: Vital Signs Temp Pulse Resp BP Pulse Ox 05/30/17 06:35 97.6 F 93 15 127/81 95 05/30/17 04:33 97.2 F L 82 16 120/72 94 05/29/17 23:25 97.9 F 79 16 116/68 94 05/29/17 19:46 97.5 F L 87 18 101/65 91 05/29/17 19:35 98 05/29/17 15:05 97.6 F 88 14 110/64 98 05/29/17 10:53 97.4 F L 78 16 112/64 93 Intake and Output 05/29/17 05/30/17 05/30/17 23:59 07:59 15:59 Intake Total 600 / 600 400 / 400 435 / 435 Balance 600 / 600 400 / 400 435 / 435 Intake: IV Fluids 600 / 600 400 / 400 435 / 435 0.9 % Sodium Chloride 1,000 ML 600 / 600 400 / 400 435 / 435 @ 100 mls/hr IVC .Q10H B[facility]IE Rx#: [id number] Oral 0 / 0 0 / 0 Other: Stool Size Smear Stool Color Brown # Bowel Movement Diapers 1 1 Blood Glucose* 103 143 General appearance: cooperative, no acute distress, no febrile - Head Head exam: Present: normal inspection - Eye Eye exam: Present: PERRL - ENT ENT exam: Present: mucous membranes moist - Neck Neck exam: Absent: lymphadenopathy, tenderness - Respiratory Respiratory exam: Present: CTAB - Cardiovascular Cardiovascular exam: Present: RRR - GI/Abdominal GI/Abdominal exam: Present: normal bowel sounds, soft. Absent: tenderness - Extremities Exam Extremities exam: Present: pedal edema - Expanded Lower Extremity Exam Lower leg exam: Present: swelling - Neurological Exam Neurological exam: Present: alert, oriented X3, strengths equal and symetr throughout - Psychiatric Psychiatric exam: Present: normal mood - Skin Skin exam: Present: pallor Oncology: Obj Data - Labs CBC & Chem 7: 05/30/17 07:33 05/30/17 07:33 - ABG Interpretation ABG results: PT/INR, D-dimer PT 24.3 Seconds (9.4-12.1) H 05/28/17 09:04 Consult Discharge Plan - Plan Referrals: Anais Good CNP [Primary Care Provider] - 06/07/17 1:00 pm
--- NOTE | 2017-05-30 12:55 | Palliative Progress Note ---
Date of Encounter: 05/30/17 Time of Encounter: 12:50 - Assessment and plan (1) Counseling regarding advanced care planning and goals of care Current Visit: Yes Status: Acute Assessment and plan: Long discussion with pt and son this am. Son did speak with oncologist yesterday and aware of pending liver biopsy. She would like to find out if this is metastatic breast cancer or another primary cancer. Discussed code status at length, pt does not want heroics for cardiac arrest, and does not want to be intubated and on ventilator. Code status transitioned to DNR/DNI. Son aware of conversation and in agreement. Social work in and discussed options of trying to see if [employer] hours increased and continuation of [facility], or short term rehabilitation. Son works 14 hours shifts on s and 4 hours on Mondays. Discussed briefly yesterday that if treatment is not desired or not an option, hospice would be best support for home. Son/ pt verbalized understanding. Will continue to follow. (2) Constipation Current Visit: Yes Status: Acute Assessment and plan: BM x 2 last pm. Continues with Lactulose Qualifiers: Constipation type: unspecified constipation type Qualified Code(s): K59.00 - Constipation, unspecified (3) Breast cancer Current Visit: Yes Status: Acute Qualifiers: Breast location: unspecified site of breast Estrogen receptor status: unspecified Patient sex: female Laterality: unspecified laterality Qualified Code(s): C50.919 - Malignant neoplasm of unspecified site of unspecified female breast (4) UTI (urinary tract infection) Current Visit: Yes Status: Acute Qualifiers: Urinary tract infection type: acute cystitis Hematuria presence: without hematuria Qualified Code(s): N30.00 - Acute cystitis without hematuria (5) Metastatic cancer Current Visit: Yes Status: Acute Assessment and plan: Awaiting liver biopsy, oncology following. - Time Spent With Patient Total time spent is greater than 50% in coordination of care (as documented) at patient's floor/unit and/or counseling patient: 25 - 35 minutes - Subjective Interval history: Patient awake and alert. Son at bedside. She denies any pain or discomfort other than tailbone. Continues with IV Antibiotic/fluids for UTI/LICHA. She is awaiting biopsy - last INR 2.2. Will be repeated today and possible need for FFP prior to procedure. She still wants to proceed. - Constitutional Vitals: Abnormal lab results WBC 16.6 K/mcL (4.3-11.1) H 05/30/17 07:33 RBC 3.08 M/mcL (3.82-4.97) L 05/30/17 07:33 Hgb 9.4 g/dL (11.5-15.4) L 05/30/17 07:33 Hct 28.5 % (35.3-44.9) L 05/30/17 07:33 RDW 17.6 % (11.5-14.5) H 05/30/17 07:33 Plt Count 79 K/mcL (140-400) L 05/30/17 07:33 MPV 12.9 fL (9.4-12.4) H 05/30/17 07:33 Neutrophils # 13.3 K/mcL (1.6-8.9) H 05/30/17 07:33 Monocytes # 1.4 K/mcL (0.0-1.3) H 05/30/17 07:33 Immature Plt Fraction 8.2 % (1.1-6.1) H 05/30/17 07:33 PT 24.3 Seconds (9.4-12.1) H 05/28/17 09:04 Chloride 112 mEq/L (98-107) H 05/30/17 07:33 Carbon Dioxide 15 mEq/L (23-29) L 05/30/17 07:33 BUN 48 mg/dL (8-23) H 05/30/17 07:33 Creatinine 1.60 mg/dL (0.60-1.20) H 05/30/17 07:33 Est GFR ( Amer) 37 (> 60) L 05/30/17 07:33 Est GFR (Non-Af Amer) 31 (> 60) L 05/30/17 07:33 BUN/Creatinine Ratio 30 (6-26) H 05/30/17 07:33 Glucose 146 mg/dL (70-105) H 05/30/17 07:33 POC Glucose 120 (58-89) H 05/30/17 11:32 Calcium 7.2 mg/dL (8.6-10.3) L 05/30/17 07:33 Magnesium 1.5 mg/dL (1.6-2.6) L 05/28/17 06:52 Total Bilirubin 2.6 mg/dL (0.3-1.0) H 05/28/17 09:04 Direct Bilirubin 1.6 mg/dL (0.0-0.2) H 05/28/17 09:04 AST 198 Units/L (13-39) H 05/28/17 09:04 ALT 117 Units/L (7-52) H 05/28/17 09:04 Alkaline Phosphatase 483 Units/L (34-104) H 05/28/17 09:04 Serum Total Protein 5.1 g/dL (6.4-8.9) L 05/28/17 09:04 Albumin 2.1 g/dL (3.5-5.7) L 05/28/17 09:04 Albumin/Globulin Ratio 0.7 (1.1-2.2) L 05/28/17 09:04 CA 19-9 Antigen 07163 U/mL (0-37) H 05/28/17 09:04 Urine Clarity Turbid (Clear) A 05/28/17 09:55 Urine Protein 100 mg/dL (Neg-Trace) H 05/28/17 09:55 Urine Ketones Trace mg/dL (Negative) H 05/28/17 09:55 Urine Blood Large (Negative) H 05/28/17 09:55 Urine Nitrite Positive (Negative) A 05/28/17 09:55 Urine Bilirubin Moderate (Negative) H 05/28/17 09:55 Ur Leukocyte Esterase Large (Negative) H 05/28/17 09:55 Urine Microscopic WBC TNTC per hpf (0-3) H 05/28/17 09:55 Ur Squamous Epith Cells Many per lpf (None-Few) H 05/28/17 09:55 Urine Bacteria Many per hpf (None-Few) H 05/28/17 09:55 Granular Casts Present per lpf (None Seen) H 05/28/17 09:55 Urine Yeast Present per hpf (None Seen) H 05/28/17 09:55 General appearance: Present: no acute distress - Respiratory Respiratory exam: Present: decreased breath sounds, CTAB - Cardiovascular Cardiovascular exam: Present: +S1, +S2 - GI/Abdominal GI/Abdominal exam: Present: distended, normal bowel sounds, soft - Extremities Exam Extremities exam: Present: normal capillary refill, normal inspection - Neurological Exam Neurological exam: Present: alert, oriented X3, strengths equal and symetr throughout - Skin Skin exam: Present: dry, warm Palliative Quality Palliative Quality: Screen for Code Status: NA (When family available), Screen for Goals of Care: NA, Screen for Pain: Yes, If Pain Regimen Started, Initiate Bowel Regimen: NA, Screen for Nausea/Vomitting: Yes Code Status: 05/27/17 22:40 Resuscitation Status: Active [RES] Routine Comment: Resuscitation Status: Full Code 05/30/17 12:52 DNR [Resuscitation Status: Active] [RES] Routine Comment: Resuscitation Status: [id number] - Labs CBC & Chem 7: 05/30/17 07:33 05/30/17 07:33 Labs: Laboratory Results - last 24 hr 05/29/17 05/29/17 05/30/17 16:55 20:08 06:21 WBC RBC Hgb Hct MCV MCH MCHC RDW Plt Count MPV Immature Gran % Seg Neutrophils % Lymphocytes % Monocytes % Eosinophils % Basophils % Neutrophils # Lymphocytes # Monocytes # Eosinophils # Basophils # Immature Plt Fraction Sodium Potassium Chloride Carbon Dioxide BUN Creatinine Est GFR ( Amer) Est GFR (Non-Af Amer) BUN/Creatinine Ratio Glucose POC Glucose 96 H 103 H Calculated Osmolality Calcium Specimen Rejected MCV Delta 05/30/17 05/30/17 05/30/17 07:07 07:33 07:33 WBC 16.6 H RBC 3.08 L Hgb 9.4 L Hct 28.5 L MCV 92.5 MCH 30.5 MCHC 33.0 RDW 17.6 H Plt Count 79 L MPV 12.9 H Immature Gran % 1.6 Seg Neutrophils % 80.1 Lymphocytes % 8.1 Monocytes % 8.4 Eosinophils % 1.7 Basophils % 0.1 Neutrophils # 13.3 H Lymphocytes # 1.3 Monocytes # 1.4 H Eosinophils # 0.3 Basophils # 0.0 Immature Plt Fraction 8.2 H Sodium 137 Potassium 5.0 Chloride 112 H Carbon Dioxide 15 L BUN 48 H Creatinine 1.60 H Est GFR ( Amer) 37 L Est GFR (Non-Af Amer) 31 L BUN/Creatinine Ratio 30 H Glucose 146 H POC Glucose 143 H Calculated Osmolality 299 Calcium 7.2 L Specimen Rejected 05/30/17 11:32 WBC RBC Hgb Hct MCV MCH MCHC RDW Plt Count MPV Immature Gran % Seg Neutrophils % Lymphocytes % Monocytes % Eosinophils % Basophils % Neutrophils # Lymphocytes # Monocytes # Eosinophils # Basophils # Immature Plt Fraction Sodium Potassium Chloride Carbon Dioxide BUN Creatinine Est GFR ( Amer) Est GFR (Non-Af Amer) BUN/Creatinine Ratio Glucose POC Glucose 120 H Calculated Osmolality Calcium Specimen Rejected - ABG Interpretation ABG results: PT/INR, D-dimer PT 24.3 Seconds (9.4-12.1) H 05/28/17 09:04 Consult Discharge Plan - Plan Referrals: Anais Good CNP [Primary Care Provider] - 06/07/17 1:00 pm
[2017-05-30 17:28] LABS: Prothrombin Time 21.5 Seconds (9.4-12.1)
[2017-05-30] MEDS ORDERED: Water for inj. (sterile) 10 ML IV ONE (17:32)
[2017-05-30] MEDS: cefTRIAXone 1,000 MG in Water for inj. (sterile) 10 ML IVP SCH (17:35)
[2017-05-30 22:51] LABS: Hematocrit 28.9 % (35.3-44.9); Hemoglobin 9.6 g/dL (11.5-15.4)
[2017-05-31 05:06] LABS: Basophils % 0.2 %; Mean Corpuscular Hemoglobin 30.6 pg (28.0-33.3); Nucleated Red Blood Cells 0.2 /100 WBC (0); Red Cell Distribution Width 18.1 % (11.5-14.5)
[2017-05-31 05:08] LABS: Eosinophils # 0.3 K/mcL (0.0-0.6); Eosinophils % 2.1 %; Hematocrit 28.1 % (35.3-44.9); Hemoglobin 9.3 g/dL (11.5-15.4); Immature Granulocytes % 2.5 % (0-4); Lymphocytes # 1.2 K/mcL (0.6-4.6); Lymphocytes % 9.5 %; Mean Corpuscular HGB Conc 33.1 g/dL (31.6-35.5); Mean Corpuscular Volume 92.4 fL (83.0-100.0); Mean Platelet Volume 12.6 fL (9.4-12.4); Monocytes # 0.9 K/mcL (0.0-1.3); Monocytes % 7.2 %; Red Blood Count 3.04 M/mcL (3.82-4.97); Segmented Neutrophils % 78.5 %
[2017-05-31 05:12] LABS: Calcium 7.3 mg/dL (8.6-10.3)
[2017-05-31 05:27] LABS: % Iron Saturation 14 % (15-50); Ferritin > 1350 ng/ml (10-120); Iron 21 mcg/dL (50-170); Transferrin 108 mg/dL (203-362)
[2017-05-31 05:30] LABS: Folate 13.9 ng/mL (3.0-16.0)
[2017-05-31 05:46] LABS: Neutrophils # 10.1 K/mcL (1.6-8.9); Platelet Count 94 K/mcL (140-400)
[2017-05-31] MEDS ORDERED: 0.9 % Sodium Chloride 250 ML ONE (06:07)
[2017-05-31 06:56] LABS: Macrocytosis Present (Not Present); Platelet Estimate Decreased (Normal); Polychromasia 1+ (Not Present)
[2017-05-31 07:50] LABS: Reticulocyte % 4.2 % (1.6-2.8)
[2017-05-31 07:51] LABS: Immature Reticulocyte % 29.4 % (11.0-38.0); Retculocyte # 0.13 M/mcL (0.05-0.10)
[2017-05-31] MEDS: Insulin LISPRO 300 UNITS/3 ML VIAL SQ SCH ×4 (08:41→22:15)
[2017-05-31] MEDS: Lactobacillus 1 EACH CAP.SPRINK PO SCH ×4 (08:41→22:02)
[2017-05-31] MEDS: Lactulose Oral Soln 20 GM/30 ML UDC PO SCH ×2 (08:41→22:02)
[2017-05-31] MEDS: cefTRIAXone 1,000 MG in Water for inj. (sterile) 10 ML IVP SCH ×2 (08:42→10:24)
--- NOTE | 2017-05-31 10:06 | Internal Med Progress Note ---
Date of Encounter: 05/31/17 Time of Encounter: 10:04 - Assessment and plan (1) Rectal bleeding Current Visit: Yes Status: Acute Assessment and plan: GI is consulted. Her hemoglobin is stable Hemoglobin down a little to 9.3 this morning, roughly unchanged in the past 3 days. It was 11.6 on admission.. No plans for any GI intervention as they believe this is likely trauma from enema.. Continue to monitor her hemodynamics. Decrease IV fluid rate to 70 mL an hour. (2) Metastatic cancer Current Visit: Yes Status: Acute Assessment and plan: The patient has metastatic lesions on the liver and possibly the pancreas. Primary is possibly depressed. Could be another primary. The family wants to proceed with a biopsy. Was unable to do it on 05/31 because of to elevated INR. The plan is to have FFP being given, and INR level today is pending. Biopsy IR guided possibly today. (3) Breast cancer Current Visit: Yes Status: Acute Assessment and plan: Seems to have metastasis to liver cancer or a new primary. Seen by oncology and palliative. Based on documentation this is been diagnosed about 10 years ago. Qualifiers: Breast location: unspecified site of breast Estrogen receptor status: unspecified Patient sex: female Laterality: unspecified laterality Qualified Code(s): C50.919 - Malignant neoplasm of unspecified site of unspecified female breast (4) Hypertension Current Visit: Yes Status: Acute Assessment and plan: Blood pressure is better this morning. Continue to hold lisinopril. Continue IV fluids. Qualifiers: Hypertension type: essential hypertension Qualified Code(s): I10 - Essential (primary) hypertension (5) Diabetes Current Visit: Yes Status: Acute Assessment and plan: Continue with insulin sliding scale. Continue with Accu-Cheks. Qualifiers: Diabetes mellitus type: type 2 Diabetes mellitus complication status: without complication Diabetes mellitus long term care phlebotomist insulin use: without long term care phlebotomist use Qualified Code(s): E11.9 - Type 2 diabetes mellitus without complications (6) UTI (urinary tract infection) Current Visit: Yes Status: Acute Assessment and plan: Continue ceftriaxone. Cultures are positive for Enterobacter and enterococcus which are susceptible to ceftriaxone. Oral antibiotics at discharge. Qualifiers: Urinary tract infection type: acute cystitis Hematuria presence: without hematuria Qualified Code(s): N30.00 - Acute cystitis without hematuria (7) LICHA (acute kidney injury) Current Visit: Yes Status: Acute Assessment and plan: This has improved a little today. Blood pressure is better today. Decrease IV fluid rate to 75 mL an hour from 100 mL an hour. Check labs in the morning. Avoid nephrotoxins. If continues to worsen we will check a renal ultrasound. May need to consult nephrology. Possibly multifactorial from her urinary tract infection versus volume loss from the rectal bleed. We will continue to monitor. - Subjective Interval history: No complaints, no acute events overnight. - Constitutional Vitals: Temp Pulse Resp BP Pulse Ox 97.5 F L 90 16 115/74 95 05/31/17 06:44 05/31/17 06:44 05/31/17 06:44 05/31/17 06:44 05/31/17 06:35 General appearance: Present: A&O X 3, no acute distress, answers questions appropriately Exam: Gen.: No acute distress CVS: Regular rhythm, no murmurs rubs or gallops. Abdomen: Soft, nontender, nondistended Extremities, no edema Internal Medicine: Result - Labs CBC & Chem 7: 05/31/17 04:46 05/31/17 04:46 Labs: Short CBC 05/30/17 05/31/17 Range/Units 22:00 04:46 WBC 12.8 H (4.3-11.1) K/mcL Hgb 9.6 L 9.3 L (11.5-15.4) g/dL Hct 28.9 L 28.1 L (35.3-44.9) % Plt Count 94 L (140-400) K/mcL Neutrophils # 10.1 H (1.6-8.9) K/mcL BMP 05/31/17 04:46 Sodium 134 L Potassium 4.0 Chloride 108 H Carbon Dioxide 16 L BUN 42 H Creatinine 1.32 H Glucose 125 H Calcium 7.3 L - ABG Interpretation ABG results: PT/INR, D-dimer PT 21.5 Seconds (9.4-12.1) H 05/30/17 16:40 - VTE Documentation of Mechanical Device: Intermittent pneumatic compression device Consult Discharge Plan - Plan Referrals: Anais Good CNP [Primary Care Provider] - 06/07/17 1:00 pm
[2017-05-31] MEDS: 0.9 % Sodium Chloride 1,000 ML IVC SCH (10:39)
[2017-05-31 10:42] LABS: Basophils % 0.2 %; Eosinophils # 0.4 K/mcL (0.0-0.6); Eosinophils % 2.7 %; Hematocrit 27.7 % (35.3-44.9); Hemoglobin 8.9 g/dL (11.5-15.4); Immature Granulocytes % 2.2 % (0-4); Lymphocytes # 1.4 K/mcL (0.6-4.6); Lymphocytes % 10.6 %; Mean Corpuscular HGB Conc 32.1 g/dL (31.6-35.5); Mean Corpuscular Hemoglobin 30.3 pg (28.0-33.3); Mean Corpuscular Volume 94.2 fL (83.0-100.0); Mean Platelet Volume 12.2 fL (9.4-12.4); Monocytes % 7.3 %; Neutrophils # 10.3 K/mcL (1.6-8.9); Red Blood Count 2.94 M/mcL (3.82-4.97); Red Cell Distribution Width 18.1 % (11.5-14.5)
[2017-05-31 10:48] LABS: Platelet Count 87 K/mcL (140-400)
[2017-05-31 10:50] LABS: INR 1.7
[2017-05-31 10:58] LABS: Albumin 2.1 g/dL (3.5-5.7); Albumin/Globulin Ratio 0.7 (1.1-2.2); Bilirubin,Total 2.6 mg/dL (0.3-1.0); Calcium 7.7 mg/dL (8.6-10.3); Total Protein 5.1 g/dL (6.4-8.9)
--- NOTE | 2017-05-31 11:25 | Palliative Progress Note ---
Date of Encounter: 05/31/17 Time of Encounter: 09:30 - Assessment and plan (1) Counseling regarding advanced care planning and goals of care Current Visit: Yes Status: Acute Assessment and plan: Pending biopsy today - results will impact discharge plan. PT/OT has been consulted for debility/weakness and did recommend ECF. If there are treatment options for patient - likely they will desire either ECF for short term rehab, or home with home health renewal and increase of passport hours. If pt not candidate for treatment, then will likely transition to hospice care at home. Palliative will not have coverage over the holiday weekend. If discharges to home, social worker palliative care diamond die maker could be reached to renew home health or make hospice referral. Will f/u Tues if patient remains here. (2) Constipation Current Visit: Yes Status: Acute Assessment and plan: Has 2 bm's documented on 05/29 - but appears these were small. She states she still feels constipated. Will increase Lactulose from 10 to 20 and monitor. Qualifiers: Constipation type: unspecified constipation type Qualified Code(s): K59.00 - Constipation, unspecified (3) Breast cancer Current Visit: Yes Status: Acute Qualifiers: Breast location: unspecified site of breast Estrogen receptor status: unspecified Patient sex: female Laterality: unspecified laterality Qualified Code(s): C50.919 - Malignant neoplasm of unspecified site of unspecified female breast (4) UTI (urinary tract infection) Current Visit: Yes Status: Acute Qualifiers: Urinary tract infection type: acute cystitis Hematuria presence: without hematuria Qualified Code(s): N30.00 - Acute cystitis without hematuria (5) Metastatic cancer Current Visit: Yes Status: Acute Assessment and plan: Awaiting liver biopsy. - Time Spent With Patient Total time spent is greater than 50% in coordination of care (as documented) at patient's floor/unit and/or counseling patient: 25 - 35 minutes - Subjective Interval history: Patient awake and alert. Denies complaints other than temperature of room. No family present. Currently receiving FFP - hopefully for biopsy later today. Has been NPO. - Constitutional Vitals: Abnormal lab results WBC 13.4 K/mcL (4.3-11.1) H 05/31/17 10:25 RBC 2.94 M/mcL (3.82-4.97) L 05/31/17 10:25 Hgb 8.9 g/dL (11.5-15.4) L 05/31/17 10:25 Hct 27.7 % (35.3-44.9) L 05/31/17 10:25 RDW 18.1 % (11.5-14.5) H 05/31/17 10:25 Plt Count 87 K/mcL (140-400) L 05/31/17 10:25 Reticulocyte # 0.13 M/mcL (0.05-0.10) H 05/31/17 04:46 Neutrophils # 10.3 K/mcL (1.6-8.9) H 05/31/17 10:25 Nucleated RBCs/100 WBC 0.2 /100 WBC (0) H 05/31/17 04:46 Platelet Estimate Decreased (Normal) L 05/31/17 04:46 Immature Plt Fraction 8.0 % (1.1-6.1) H 05/31/17 04:46 Polychromasia 1+ (Not Present) A 05/31/17 04:46 Macrocytosis Present (Not Present) A 05/31/17 04:46 Percent Retic 4.2 % (1.6-2.8) H 05/31/17 04:46 PT 19.0 Seconds (9.4-12.1) H 05/31/17 10:25 Carbon Dioxide 18 mEq/L (23-29) L 05/31/17 10:25 BUN 42 mg/dL (8-23) H 05/31/17 10:25 Creatinine 1.36 mg/dL (0.60-1.20) H 05/31/17 10:25 Est GFR ( Amer) 45 (> 60) L 05/31/17 10:25 Est GFR (Non-Af Amer) 37 (> 60) L 05/31/17 10:25 BUN/Creatinine Ratio 31 (6-26) H 05/31/17 10:25 Glucose 120 mg/dL (70-105) H 05/31/17 10:25 POC Glucose 104 (58-89) H 05/31/17 05:22 Calcium 7.7 mg/dL (8.6-10.3) L 05/31/17 10:25 Magnesium 1.5 mg/dL (1.6-2.6) L 05/28/17 06:52 Iron 21 mcg/dL (50-170) L 05/31/17 04:46 % Saturation 14 % (15-50) L 05/31/17 04:46 Transferrin 108 mg/dL (203-362) L 05/31/17 04:46 Ferritin > 1350 ng/ml (10-120) H 05/31/17 04:46 Total Bilirubin 2.6 mg/dL (0.3-1.0) H 05/31/17 10:25 Direct Bilirubin 1.6 mg/dL (0.0-0.2) H 05/28/17 09:04 Alkaline Phosphatase 440 Units/L (34-104) H 05/31/17 10:25 Serum Total Protein 5.1 g/dL (6.4-8.9) L 05/31/17 10:25 Albumin 2.1 g/dL (3.5-5.7) L 05/31/17 10:25 Albumin/Globulin Ratio 0.7 (1.1-2.2) L 05/31/17 10:25 CA 19-9 Antigen 92479 U/mL (0-37) H 05/28/17 09:04 Vitamin B12 3224 pg/mL (250-1100) H 05/31/17 04:46 Urine Clarity Turbid (Clear) A 05/28/17 09:55 Urine Protein 100 mg/dL (Neg-Trace) H 05/28/17 09:55 Urine Ketones Trace mg/dL (Negative) H 05/28/17 09:55 Urine Blood Large (Negative) H 05/28/17 09:55 Urine Nitrite Positive (Negative) A 05/28/17 09:55 Urine Bilirubin Moderate (Negative) H 05/28/17 09:55 Ur Leukocyte Esterase Large (Negative) H 05/28/17 09:55 Urine Microscopic WBC TNTC per hpf (0-3) H 05/28/17 09:55 Ur Squamous Epith Cells Many per lpf (None-Few) H 05/28/17 09:55 Urine Bacteria Many per hpf (None-Few) H 05/28/17 09:55 Granular Casts Present per lpf (None Seen) H 05/28/17 09:55 Urine Yeast Present per hpf (None Seen) H 05/28/17 09:55 General appearance: Present: no acute distress - Respiratory Respiratory exam: Present: decreased breath sounds, CTAB - Cardiovascular Cardiovascular exam: Present: +S1, +S2 - GI/Abdominal GI/Abdominal exam: Present: diminished bowel sounds, distended, soft - Additional comments: Attends in place - Extremities Exam Additional comments: generalized edema - Neurological Exam Neurological exam: Present: alert, oriented X3 Additional comments: generalized weakness - Skin Skin exam: Present: dry, warm Palliative Quality Palliative Quality: Screen for Code Status: NA (When family available), Screen for Goals of Care: NA, Screen for Pain: Yes, If Pain Regimen Started, Initiate Bowel Regimen: NA, Screen for Nausea/Vomitting: Yes Code Status: 05/27/17 22:40 Resuscitation Status: Active [RES] Routine Comment: Resuscitation Status: Full Code 05/30/17 12:52 DNR [Resuscitation Status: Active] [RES] Routine Comment: Resuscitation Status: [id number] - Labs CBC & Chem 7: 05/31/17 10:25 05/31/17 10:25 Labs: Laboratory Results - last 24 hr 05/30/17 05/30/17 05/30/17 11:32 16:35 16:40 WBC RBC Hgb Hct MCV MCH MCHC RDW Plt Count MPV Reticulocyte # Immature Gran % Seg Neutrophils % Lymphocytes % Monocytes % Eosinophils % Basophils % Neutrophils # Lymphocytes # Monocytes # Eosinophils # Basophils # Nucleated RBCs/100 WBC Platelet Estimate Immature Plt Fraction Polychromasia Macrocytosis Smear Path Review Percent Retic Immature Retic Fraction Retic Hgb Equivalent PT 21.5 H INR 2.0 Sodium Potassium Chloride Carbon Dioxide BUN Creatinine Est GFR ( Amer) Est GFR (Non-Af Amer) BUN/Creatinine Ratio Glucose POC Glucose 120 H 129 H Calculated Osmolality Calcium Iron % Saturation Transferrin Ferritin Total Bilirubin AST ALT Alkaline Phosphatase Serum Total Protein Albumin Globulin Albumin/Globulin Ratio Vitamin B12 Folate Blood Type Antibody Screen 05/30/17 05/30/17 05/31/17 22:00 22:00 04:46 WBC 12.8 H RBC 3.04 L Hgb 9.6 L 9.3 L Hct 28.9 L 28.1 L MCV 92.4 MCH 30.6 MCHC 33.1 RDW 18.1 H Plt Count 94 L MPV 12.6 H Reticulocyte # Immature Gran % 2.5 Seg Neutrophils % 78.5 Lymphocytes % 9.5 Monocytes % 7.2 Eosinophils % 2.1 Basophils % 0.2 Neutrophils # 10.1 H Lymphocytes # 1.2 Monocytes # 0.9 Eosinophils # 0.3 Basophils # 0.0 Nucleated RBCs/100 WBC 0.2 H Platelet Estimate Decreased L Immature Plt Fraction 8.0 H Polychromasia 1+ A Macrocytosis Present A Smear Path Review Percent Retic Immature Retic Fraction Retic Hgb Equivalent PT INR Sodium Potassium Chloride Carbon Dioxide BUN Creatinine Est GFR ( Amer) Est GFR (Non-Af Amer) BUN/Creatinine Ratio Glucose POC Glucose 120 H Calculated Osmolality Calcium Iron % Saturation Transferrin Ferritin Total Bilirubin AST ALT Alkaline Phosphatase Serum Total Protein Albumin Globulin Albumin/Globulin Ratio Vitamin B12 Folate Blood Type Antibody Screen 05/31/17 05/31/17 05/31/17 04:46 04:46 04:46 WBC RBC Hgb Hct MCV MCH MCHC RDW Plt Count MPV Reticulocyte # 0.13 H Immature Gran % Seg Neutrophils % Lymphocytes % Monocytes % Eosinophils % Basophils % Neutrophils # Lymphocytes # Monocytes # Eosinophils # Basophils # Nucleated RBCs/100 WBC Platelet Estimate Immature Plt Fraction Polychromasia Macrocytosis Smear Path Review TNP Percent Retic 4.2 H Immature Retic Fraction 29.4 Retic Hgb Equivalent 33.8 PT INR Sodium 134 L Potassium 4.0 Chloride 108 H Carbon Dioxide 16 L BUN 42 H Creatinine 1.32 H Est GFR ( Amer) 47 L Est GFR (Non-Af Amer) 38 L BUN/Creatinine Ratio 32 H Glucose 125 H POC Glucose Calculated Osmolality 290 Calcium 7.3 L Iron % Saturation Transferrin Ferritin Total Bilirubin AST ALT Alkaline Phosphatase Serum Total Protein Albumin Globulin Albumin/Globulin Ratio Vitamin B12 Folate Blood Type A POSITIVE Antibody Screen NEGATIVE 05/31/17 05/31/17 05/31/17 04:46 04:46 05:22 WBC RBC Hgb Hct MCV MCH MCHC RDW Plt Count MPV Reticulocyte # Immature Gran % Seg Neutrophils % Lymphocytes % Monocytes % Eosinophils % Basophils % Neutrophils # Lymphocytes # Monocytes # Eosinophils # Basophils # Nucleated RBCs/100 WBC Platelet Estimate Immature Plt Fraction Polychromasia Macrocytosis Smear Path Review Percent Retic Immature Retic Fraction Retic Hgb Equivalent PT INR Sodium Potassium Chloride Carbon Dioxide BUN Creatinine Est GFR ( Amer) Est GFR (Non-Af Amer) BUN/Creatinine Ratio Glucose POC Glucose 104 H Calculated Osmolality Calcium Iron 21 L % Saturation 14 L Transferrin 108 L Ferritin > 1350 H Total Bilirubin AST ALT Alkaline Phosphatase Serum Total Protein Albumin Globulin Albumin/Globulin Ratio Vitamin B12 3224 H Folate 13.9 Blood Type Antibody Screen 05/31/17 05/31/17 05/31/17 10:25 10:25 10:25 WBC 13.4 H RBC 2.94 L Hgb 8.9 L Hct 27.7 L MCV 94.2 MCH 30.3 MCHC 32.1 RDW 18.1 H Plt Count 87 L MPV 12.2 Reticulocyte # Immature Gran % 2.2 Seg Neutrophils % 77.0 Lymphocytes % 10.6 Monocytes % 7.3 Eosinophils % 2.7 Basophils % 0.2 Neutrophils # 10.3 H Lymphocytes # 1.4 Monocytes # 1.0 Eosinophils # 0.4 Basophils # 0.0 Nucleated RBCs/100 WBC Platelet Estimate Immature Plt Fraction Polychromasia Macrocytosis Smear Path Review Percent Retic Immature Retic Fraction Retic Hgb Equivalent PT 19.0 H INR 1.7 Sodium 136 Potassium 4.0 Chloride 107 Carbon Dioxide 18 L BUN 42 H Creatinine 1.36 H Est GFR ( Amer) 45 L Est GFR (Non-Af Amer) 37 L BUN/Creatinine Ratio 31 H Glucose 120 H POC Glucose Calculated Osmolality 294 Calcium 7.7 L Iron % Saturation Transferrin Ferritin Total Bilirubin 2.6 H AST 39 ALT 48 Alkaline Phosphatase 440 H Serum Total Protein 5.1 L Albumin 2.1 L Globulin 3.0 Albumin/Globulin Ratio 0.7 L Vitamin B12 Folate Blood Type Antibody Screen - ABG Interpretation ABG results: PT/INR, D-dimer PT 19.0 Seconds (9.4-12.1) H 05/31/17 10:25 Consult Discharge Plan - Plan Referrals: Anais Good CNP [Primary Care Provider] - 06/07/17 1:00 pm
--- NOTE | 2017-05-31 17:18 | Oncology Inp Progress Note ---
Date of Encounter: 05/31/17 Time of Encounter: 16:00 (1) Breast cancer Current Visit: Yes Status: Acute Assessment and plan: Patient had received Rx more than 10 yrs ago for history of breast/uterine cancer including surgery and radiation therapy per patient. Liver lesions--diffuse/multiple reviewed imaging/GI recommendations. CA19-9 elevation-r/o pancreatic/biliary primary--currently awaiting for adequate INR for liver biopsy, appreciate management of hospitalist team. Per previous note by Dr. Bray she had discussed with patients son Neal on the phone who wants biopsy done despite the fact that she may not be a candidate for chemotherapy due to performance status. This was also discussed with patient today who understands this as well. Patient currently ECOG performance status 4, she relates poor performance due to bilateral knee pain and was previously able to transfer from bed/chair and ambulate short distances. Working with PT, encouraged participation. Rectal bleeding monitor hgb/hct, stable. GI consult recommendations reviewed. Anemia workup shows reticulocyte count high, serum iron low, will wait to decide for Iron replacement pending liver biopsy results, awaiting SPEP and free light chains results. Blood smear shows likely reactive leukocytosis and normocytic anemia which could be commonly secondary to blood loss, MAURICIO, malignancy or liver disease. Reviewed palliative care note for discharge plan and agree with direction. Discussed these options with patient today, she did not appear to favor short term rehabilitation but would consider. Qualifiers: Breast location: unspecified site of breast Estrogen receptor status: unspecified Patient sex: female Laterality: unspecified laterality Qualified Code(s): C50.919 - Malignant neoplasm of unspecified site of unspecified female breast Oncology: Subj Interval history: Denies pain. Reports dry mouth and increased thirst due to being NPO for liver biopsy, asking multiple times for drink. Explained to patient multiple times that she is NPO for liver biopsy which was delayed due to high INR. Nurse in room to check for when biopsy will be planned for, if biopsy not pursued for some time patient may be allowed to drink dependent on when this will be scheduled for. - Constitutional Vitals: Vital Signs Temp Pulse Resp BP Pulse Ox 05/31/17 15:23 97.8 F 66 14 122/75 94 05/31/17 11:49 97.6 F 80 16 133/72 96 05/31/17 06:44 97.5 F L 90 16 115/74 05/31/17 06:35 97.8 F 94 16 118/67 95 05/31/17 06:31 97.5 F L 91 16 113/64 91 05/31/17 04:16 97.1 F L 72 14 119/74 95 05/30/17 23:24 97.8 F 79 14 112/58 05/30/17 19:31 97.2 F L 84 15 116/65 95 Intake and Output 05/31/17 05/31/17 05/31/17 07:59 15:59 23:59 Intake Total 1000 / 1000 Output Total 0 / 0 375 / 375 450 / 450 Balance 625 / 625 -450 / -450 Intake: IV Fluids 1000 / 1000 0.9 % Sodium Chloride 250 ML As .ROUTE .STK-MED ONE Rx#: [id number] 0.9 % Sodium Chloride 1,000 ML 1000 / 1000 @ 70 mls/hr IVC .[id number] [facility] Rx #:[id number] Oral 0 / 0 0 / 0 Blood Product 0 / 0 Plasma Unit [id number] 0 / 0 Output: Urine 0 / 0 0 / 0 Straight Cath 375 / 375 450 / 450 Other: Meal NPO Lunch Percent of Meal Consumed 0% Weight 70.4 kg Blood Glucose* 104 101 Patient Weight 05/31/17 23:59 Weight 70.4 kg General appearance: cooperative, no acute distress, no febrile - Head Head exam: Present: normal inspection - ENT ENT exam: Present: mucous membranes dry - Neck Neck exam: Absent: lymphadenopathy, tenderness - Respiratory Respiratory exam: Present: CTAB - Cardiovascular Cardiovascular exam: Present: RRR, +S1, +S2 - GI/Abdominal GI/Abdominal exam: Present: distended, normal bowel sounds, soft. Absent: tenderness - Extremities Exam Extremities exam: Present: pedal edema, tenderness. Absent: calf tenderness - Expanded Lower Extremity Exam Lower leg exam: Present: swelling - Neurological Exam Neurological exam: Present: alert, oriented X3, strengths equal and symetr throughout - Psychiatric Psychiatric exam: Present: normal mood - Skin Skin exam: Present: normal color Oncology: Obj Data - Labs CBC & Chem 7: 05/31/17 10:25 05/31/17 10:25 - ABG Interpretation ABG results: PT/INR, D-dimer PT 19.0 Seconds (9.4-12.1) H 05/31/17 10:25 Consult Discharge Plan - Plan Referrals: Anais Good CNP [Primary Care Provider] - 06/07/17 1:00 pm
[2017-06-01 04:48] LABS: Hemoglobin 8.7 g/dL (11.5-15.4); Mean Corpuscular Hemoglobin 29.9 pg (28.0-33.3); Red Blood Count 2.91 M/mcL (3.82-4.97)
[2017-06-01 04:50] LABS: Basophils % 0.3 %; Eosinophils # 0.4 K/mcL (0.0-0.6); Hematocrit 27.1 % (35.3-44.9); Immature Granulocytes % 2.6 % (0-4); Immature Platelets 6.9 % (1.1-6.1); Lymphocytes # 1.1 K/mcL (0.6-4.6); Lymphocytes % 10.3 %; Mean Corpuscular HGB Conc 32.1 g/dL (31.6-35.5); Mean Corpuscular Volume 93.1 fL (83.0-100.0); Monocytes # 0.9 K/mcL (0.0-1.3); Monocytes % 8.3 %; Neutrophils # 7.9 K/mcL (1.6-8.9); Red Cell Distribution Width 18.1 % (11.5-14.5); Segmented Neutrophils % 74.5 %
[2017-06-01 05:06] LABS: Platelet Count 76 K/mcL (140-400)
[2017-06-01 05:11] LABS: Calcium 7.6 mg/dL (8.6-10.3)
[2017-06-01] MEDS: Insulin LISPRO 300 UNITS/3 ML VIAL SQ SCH ×4 (08:13→21:07)
[2017-06-01] MEDS: cefTRIAXone 1,000 MG in Water for inj. (sterile) 10 ML IVP SCH (09:00)
[2017-06-01] MEDS: Lactobacillus 1 EACH CAP.SPRINK PO SCH ×4 (09:00→21:09)
[2017-06-01] MEDS: Lactulose Oral Soln 20 GM/30 ML UDC PO SCH ×2 (09:02→21:09)
[2017-06-01 19:26] LABS: Kappa Qnt Free Light Chains 6.19 mg/dL (0.33-1.94); Lambda Qnt Free Light Chains 7.07 mg/dL (0.57-2.63)
[2017-06-01] MEDS: 0.9 % Sodium Chloride 1,000 ML IVC SCH (21:00)
--- NOTE | 2017-06-01 22:24 | Internal Med Progress Note ---
Date of Encounter: 06/01/17 Time of Encounter: 11:21 - Assessment and plan (1) Rectal bleeding Current Visit: Yes Status: Acute Assessment and plan: GI is consulted. Hemoglobin without any acute drop, slowly trending down but patient on fluids. Will hold fluids and recheck H&H in AM. Hemodynamically stable. No plans for any GI intervention as they believe this is likely trauma from enema. Continue to monitor her hemodynamics. Decrease IV fluid rate to 70 mL an hour. (2) Metastatic cancer Current Visit: Yes Status: Acute Assessment and plan: The patient has metastatic lesions on the liver and possibly the pancreas. Primary is possibly depressed. Could be another primary. The family wants to proceed with a biopsy. Was unable to do it on 05/31 because of to elevated INR. The plan is to have FFP being given, and INR level today is pending. Biopsy IR guided possibly today. Need IR biopsy. This may be delayed because of holiday weekend. Will monitor INR for <1.5. If patient is not planned for procedure she may have a diet, but if unsure then she should be kept NPO until verified for that day. (3) Breast cancer Current Visit: Yes Status: Acute Assessment and plan: Seems to have metastasis to liver cancer or a new primary. Seen by oncology and palliative. Based on documentation this is been diagnosed about 10 years ago. Qualifiers: Breast location: unspecified site of breast Estrogen receptor status: unspecified Patient sex: female Laterality: unspecified laterality Qualified Code(s): C50.919 - Malignant neoplasm of unspecified site of unspecified female breast (4) Hypertension Current Visit: Yes Status: Acute Assessment and plan: Continue to hold lisinopril. Hold IV fluids patient is having edema. Qualifiers: Hypertension type: essential hypertension Qualified Code(s): I10 - Essential (primary) hypertension (5) Diabetes Current Visit: Yes Status: Acute Assessment and plan: Continue with insulin sliding scale. Continue with Accu-Cheks. Qualifiers: Diabetes mellitus type: type 2 Diabetes mellitus complication status: without complication Diabetes mellitus moth exterminator insulin use: without moth exterminator use Qualified Code(s): E11.9 - Type 2 diabetes mellitus without complications (6) UTI (urinary tract infection) Current Visit: Yes Status: Acute Assessment and plan: Continue ceftriaxone. Cultures are positive for Enterobacter and enterococcus which are susceptible to ceftriaxone. Oral antibiotics at discharge. Qualifiers: Urinary tract infection type: acute cystitis Hematuria presence: without hematuria Qualified Code(s): N30.00 - Acute cystitis without hematuria (7) LICHA (acute kidney injury) Current Visit: Yes Status: Acute Assessment and plan: Has improved. Follow-up daily BMP. Avoid nephrotoxins. - Subjective Interval history: No complaints, no acute events overnight. INR for today pending. - Constitutional Vitals: Temp Pulse Resp BP Pulse Ox 97.3 F L 76 14 117/76 98 06/01/17 19:10 06/01/17 19:10 06/01/17 19:10 06/01/17 19:10 06/01/17 19:10 General appearance: Present: A&O X 3, no acute distress, answers questions appropriately Exam: CVS: RRR Lungs: CTAB Ext: 1+ bilateral pedal edema Internal Medicine: Result - Labs CBC & Chem 7: 06/01/17 04:25 06/01/17 04:25 Labs: Short CBC 06/01/17 Range/Units 04:25 WBC 10.6 (4.3-11.1) K/mcL Hgb 8.7 L (11.5-15.4) g/dL Hct 27.1 L (35.3-44.9) % Plt Count 76 L (140-400) K/mcL Neutrophils # 7.9 (1.6-8.9) K/mcL BMP 06/01/17 04:25 Sodium 136 Potassium 4.0 Chloride 110 H Carbon Dioxide 19 L BUN 34 H Creatinine 1.21 H Glucose 131 H Calcium 7.6 L - ABG Interpretation ABG results: PT/INR, D-dimer PT 19.0 Seconds (9.4-12.1) H 05/31/17 10:25 - VTE Documentation of Mechanical Device: Intermittent pneumatic compression device Consult Discharge Plan - Plan Referrals: Anais Good CNP [Primary Care Provider] - 06/07/17 1:00 pm
[2017-06-02 05:23] LABS: INR 2.1; Prothrombin Time 22.7 Seconds (9.4-12.1)
[2017-06-02 05:28] LABS: Immature Granulocytes % 3.1 % (0-4)
[2017-06-02 05:29] LABS: Basophils # 0.1 K/mcL (0.0-0.2); Basophils % 0.4 %; Eosinophils # 0.5 K/mcL (0.0-0.6); Eosinophils % 3.9 %; Hematocrit 28.3 % (35.3-44.9); Hemoglobin 9.3 g/dL (11.5-15.4); Immature Platelets 6.7 % (1.1-6.1); Lymphocytes # 1.2 K/mcL (0.6-4.6); Lymphocytes % 9.3 %; Mean Corpuscular HGB Conc 32.9 g/dL (31.6-35.5); Mean Corpuscular Hemoglobin 30.6 pg (28.0-33.3); Mean Corpuscular Volume 93.1 fL (83.0-100.0); Mean Platelet Volume 12.1 fL (9.4-12.4); Monocytes # 0.8 K/mcL (0.0-1.3); Monocytes % 6.5 %; Neutrophils # 9.8 K/mcL (1.6-8.9); Red Blood Count 3.04 M/mcL (3.82-4.97); Red Cell Distribution Width 18.2 % (11.5-14.5); Segmented Neutrophils % 76.8 %
[2017-06-02 05:33] LABS: Platelet Count 82 K/mcL (140-400)
[2017-06-02 06:02] LABS: BUN/Creatinine Ratio 25 (6-26); Blood Urea Nitrogen 27 mg/dL (8-23); Calcium 7.8 mg/dL (8.6-10.3); Carbon Dioxide 19 mEq/L (23-29); Chloride 107 mEq/L (98-107); Glucose 120 mg/dL (70-105); Osmolality,Calculated 288 (280-300); Potassium 3.2 mEq/L (3.5-5.1); Sodium 136 mEq/L (136-145); eGFR For African Americans > 60 (> 60); eGFR For Non-African Americans 50 (> 60)
[2017-06-02] MEDS: Insulin LISPRO 300 UNITS/3 ML VIAL SQ SCH ×4 (07:52→21:08)
[2017-06-02] MEDS: cefTRIAXone 1,000 MG in Water for inj. (sterile) 10 ML IVP SCH (07:54)
[2017-06-02] MEDS: Lactulose Oral Soln 20 GM/30 ML UDC PO SCH (07:54)
[2017-06-02] MEDS: Lactobacillus 1 EACH CAP.SPRINK PO SCH ×4 (07:54→21:07)
[2017-06-02] MEDS ORDERED: *HR* Phytonadione 5 MG TABLET PO ONE (07:54)
[2017-06-02 10:30] LABS: Beta Globulin (PEP) 0.73 g/dL (0.48-1.10)
--- NOTE | 2017-06-02 18:05 | Internal Med Progress Note ---
Date of Encounter: 06/02/17 Time of Encounter: 17:10 - Assessment and plan (1) Rectal bleeding Current Visit: Yes Status: Acute Assessment and plan: GI was consulted. Hemoglobin without any acute drop, slowly trending down but patient on fluids. Fluids were held and hemoglobin improved at 9.3, likely there was some dilutional component in the past few days. Hemodynamically stable. No plans for any GI intervention as they believe this is likely trauma from enema. Continue to monitor her hemodynamics. Prior to admission she had constipation requiring enema. She had BRPBR, and given stool softener. Patient now having loose stools. They are brown and not water-like. Likely from lactulose but given she is a chronically ill patient admitted in a hospital, we will check for c diff as well. (2) Metastatic cancer Current Visit: Yes Status: Acute Assessment and plan: The patient has metastatic lesions on the liver and possibly the pancreas. Primary is possibly depressed. Could be another primary. The family wants to proceed with a biopsy. Was unable to do it on 05/31 because of to elevated INR. The plan is to have FFP being given, and INR level today is pending. Biopsy IR guided possibly today. Need IR biopsy. This may be delayed because of holiday weekend. Will attempt for INR for <1.5, likely elevated because of liver function. She is not on any anticoagulants. Will try small dose of PO vitamin K and recheck INR tomorrow. This may not be helpful if patient does not have coagulation factors produced. (3) Breast cancer Current Visit: Yes Status: Acute Assessment and plan: Seems to have metastasis to liver cancer or a new primary. Seen by oncology and palliative. Based on documentation this is been diagnosed about 10 years ago. Qualifiers: Breast location: unspecified site of breast Estrogen receptor status: unspecified Patient sex: female Laterality: unspecified laterality Qualified Code(s): C50.919 - Malignant neoplasm of unspecified site of unspecified female breast (4) Hypertension Current Visit: Yes Status: Acute Assessment and plan: Continue to hold lisinopril. Hold IV fluids patient is having edema. Qualifiers: Hypertension type: essential hypertension Qualified Code(s): I10 - Essential (primary) hypertension (5) Diabetes Current Visit: Yes Status: Acute Assessment and plan: Continue with insulin sliding scale. Continue with Accu-Cheks. Qualifiers: Diabetes mellitus type: type 2 Diabetes mellitus complication status: without complication Diabetes mellitus terminal gauger insulin use: without terminal gauger use Qualified Code(s): E11.9 - Type 2 diabetes mellitus without complications (6) UTI (urinary tract infection) Current Visit: Yes Status: Acute Assessment and plan: Continue ceftriaxone. Cultures are positive for Enterobacter and enterococcus which are susceptible to ceftriaxone. Oral antibiotics at discharge. Qualifiers: Urinary tract infection type: acute cystitis Hematuria presence: without hematuria Qualified Code(s): N30.00 - Acute cystitis without hematuria (7) LICHA (acute kidney injury) Current Visit: Yes Status: Acute Assessment and plan: Has improved. Follow-up daily BMP. Avoid nephrotoxins. - Subjective Interval history: Patient has complaints of loose stools throughout the day. She was initially having severe constipation upon admission at other ED. Started on lactulose here. Stools are loose but brown, not formed. Denies any blood in stool - Constitutional Vitals: Temp Pulse Resp BP Pulse Ox 97.6 F 80 16 135/83 95 06/02/17 11:20 06/02/17 11:20 06/02/17 07:32 06/02/17 11:20 06/02/17 11:20 General appearance: Present: A&O X 3, no acute distress, answers questions appropriately - Cardiovascular Cardiovascular exam: Present: RRR, +S1, +S2. Absent: diastolic murmur, gallop, rubs, systolic murmur - GI/Abdominal GI/Abdominal exam: Present: normal bowel sounds, soft, no peritoneal signs. Absent: distended, tenderness - Extremities Exam Extremities exam: Present: normal capillary refill, mottling (noted on plantar surfac of left great toe and some on right foot.), pedal edema, radial pulses palpable and symmetrical. Absent: calf tenderness, joint swelling Internal Medicine: Result - Labs CBC & Chem 7: 06/02/17 03:50 06/02/17 03:50 Labs: Short CBC 06/02/17 Range/Units 03:50 WBC 12.7 H (4.3-11.1) K/mcL Hgb 9.3 L (11.5-15.4) g/dL Hct 28.3 L (35.3-44.9) % Plt Count 82 L (140-400) K/mcL Neutrophils # 9.8 H (1.6-8.9) K/mcL BMP 06/02/17 03:50 Sodium 136 Potassium 3.2 L Chloride 107 Carbon Dioxide 19 L BUN 27 H Creatinine 1.06 Glucose 120 H Calcium 7.8 L - ABG Interpretation ABG results: PT/INR, D-dimer PT 22.7 Seconds (9.4-12.1) H 06/02/17 03:50 - VTE Documentation of Mechanical Device: Intermittent pneumatic compression device Consult Discharge Plan - Plan Referrals: Anais Good CNP [Primary Care Provider] - 06/07/17 1:00 pm
[2017-06-03 06:11] LABS: INR 2.1; Prothrombin Time 22.6 Seconds (9.4-12.1)
[2017-06-03 06:12] LABS: Mean Corpuscular Volume 94.2 fL (83.0-100.0)
[2017-06-03 06:14] LABS: Basophils % 0.2 %; Eosinophils # 0.2 K/mcL (0.0-0.6); Eosinophils % 1.1 %; Hematocrit 35.7 % (35.3-44.9); Hemoglobin 11.5 g/dL (11.5-15.4); Immature Granulocytes % 2.5 % (0-4); Immature Platelets 9.3 % (1.1-6.1); Lymphocytes # 1.4 K/mcL (0.6-4.6); Lymphocytes % 6.9 %; Mean Corpuscular HGB Conc 32.2 g/dL (31.6-35.5); Mean Corpuscular Hemoglobin 30.3 pg (28.0-33.3); Mean Platelet Volume 12.3 fL (9.4-12.4); Monocytes # 0.9 K/mcL (0.0-1.3); Monocytes % 4.2 %; Neutrophils # 17.6 K/mcL (1.6-8.9); Red Blood Count 3.79 M/mcL (3.82-4.97); Red Cell Distribution Width 18.3 % (11.5-14.5); Segmented Neutrophils % 85.1 %
[2017-06-03 06:27] LABS: Calcium 8.4 mg/dL (8.6-10.3); Potassium 3.8 mEq/L (3.5-5.1)
[2017-06-03 06:33] LABS: Platelet Count 97 K/mcL (140-400)
[2017-06-03 06:53] LABS: Anisocytosis 1+ (Not Present); Burr Cells 3+ (Not Present); Platelet Estimate Decreased (Normal)
[2017-06-03 06:54] LABS: Polychromasia 1+ (Not Present); Tear Drop Cells 1+ (Not Present)
[2017-06-03] MEDS: Insulin LISPRO 300 UNITS/3 ML VIAL SQ SCH ×4 (07:30→20:37)
[2017-06-03] MEDS: Lactobacillus 1 EACH CAP.SPRINK PO SCH ×4 (07:58→20:36)
--- NOTE | 2017-06-03 09:28 | Internal Med Progress Note ---
Date of Encounter: 06/03/17 Time of Encounter: 09:26 - Assessment and plan (1) Rectal bleeding Current Visit: Yes Status: Acute Assessment and plan: GI was consulted. Hemoglobin without any acute drop, slowly trending down but patient on fluids. Fluids were held and hemoglobin improved at 9.3, likely there was some dilutional component in the past few days. Hemodynamically stable. No plans for any GI intervention as they believe this is likely trauma from enema. Continue to monitor her hemodynamics. Prior to admission she had constipation requiring enema. She had BRPBR, and given stool softener. Patient now having loose stools. They are brown and not water-like. Likely from lactulose but given she is a chronically ill patient admitted in a hospital, we will check for c diff as well. 06/03; Diarrhea improving after holding lactulose. Less likely infectious cause of diarrhea. C diff results pending. (2) LICHA (acute kidney injury) Current Visit: Yes Status: Acute Assessment and plan: Has improved. Follow-up daily BMP. Avoid nephrotoxins. (3) Metastatic cancer Current Visit: Yes Status: Acute Assessment and plan: The patient has metastatic lesions on the liver and possibly the pancreas. Primary is possibly depressed. Could be another primary. The family wants to proceed with a biopsy. Was unable to do it on 05/31 because of to elevated INR. The plan is to have FFP being given, and INR level today is pending. Biopsy IR guided possibly today. Need IR biopsy. This may be delayed because of holiday weekend. Will attempt for INR for <1.5, likely elevated because of liver function. She is not on any anticoagulants. Will try small dose of PO vitamin K and recheck INR tomorrow. This may not be helpful if patient does not have coagulation factors produced. (4) Breast cancer Current Visit: Yes Status: Acute Assessment and plan: Seems to have metastasis to liver cancer or a new primary. Seen by oncology and palliative. Based on documentation this is been diagnosed about 10 years ago. Qualifiers: Breast location: unspecified site of breast Estrogen receptor status: unspecified Patient sex: female Laterality: unspecified laterality Qualified Code(s): C50.919 - Malignant neoplasm of unspecified site of unspecified female breast (5) Hypertension Current Visit: Yes Status: Acute Assessment and plan: Continue to hold lisinopril. Hold IV fluids patient is having edema. Qualifiers: Hypertension type: essential hypertension Qualified Code(s): I10 - Essential (primary) hypertension (6) Diabetes Current Visit: Yes Status: Acute Assessment and plan: Continue with insulin sliding scale. Continue with Accu-Cheks. Qualifiers: Diabetes mellitus type: type 2 Diabetes mellitus complication status: without complication Diabetes mellitus terminal worker insulin use: without terminal worker use Qualified Code(s): E11.9 - Type 2 diabetes mellitus without complications (7) UTI (urinary tract infection) Current Visit: Yes Status: Acute Assessment and plan: Cultures are positive for Enterobacter and enterococcus which are susceptible to ceftriaxone. 06/03/17 patient had significant leukocytosis in 20k and neutrophilia at 17, sensitivities from urine cultures returned and so Rocephin was discontinued and merropenem and Ampicillin was started. She does not appear septic. Qualifiers: Urinary tract infection type: acute cystitis Hematuria presence: without hematuria Qualified Code(s): N30.00 - Acute cystitis without hematuria (8) Leukocytosis Current Visit: Yes Status: Acute Assessment and plan: With neurtrophilia. Urine culture sensitivities returned 06/03/17. Will switch to Ampicillin and merropenem. monitor closely. Currently no signs of sepsis outside of leukocytosis. Qualifiers: Leukocytosis type: unspecified Qualified Code(s): D72.829 - Elevated white blood cell count, unspecified - Subjective Interval history: Patient has complaints of loose stools throughout the day. She was initially having severe constipation upon admission at other ED. Started on lactulose here. Stools are loose but brown, not formed. Denies any blood in stool. Lactulose was held. 06/03/17 stools became more formed. she denies fevers/ chills, n/v. WBC count went up today. Sensitivities for enterococcus and enterobacter returned today. - Constitutional Vitals: Temp Pulse Resp BP Pulse Ox 96.8 F L 83 14 90/66 97 06/03/17 08:11 06/03/17 08:11 06/03/17 08:11 06/03/17 08:11 06/03/17 08:11 General appearance: Present: A&O X 3, no acute distress, answers questions appropriately Exam: General appearance: Present: A&O X 3, no acute distress, answers questions appropriately - Cardiovascular Cardiovascular exam: Present: RRR, +S1, +S2. Absent: diastolic murmur, gallop, rubs, systolic murmur - GI/Abdominal GI/Abdominal exam: Present: normal bowel sounds, soft, no peritoneal signs. Absent: distended, tenderness - Extremities Exam Extremities exam: Present: normal capillary refill, mottling (noted on plantar surfac of left great toe and some on right foot.), 1+ pedal non-pitting edema, radial pulses palpable and symmetrical. Absent: calf tenderness, joint swelling Internal Medicine: Result - Labs CBC & Chem 7: 06/03/17 05:34 06/03/17 05:34 Labs: Short CBC 06/03/17 Range/Units 05:34 WBC 20.7 H D (4.3-11.1) K/mcL Hgb 11.5 D (11.5-15.4) g/dL Hct 35.7 (35.3-44.9) % Plt Count 97 L (140-400) K/mcL Neutrophils # 17.6 H (1.6-8.9) K/mcL BMP 06/03/17 05:34 Sodium 135 L Potassium 3.8 Chloride 108 H Carbon Dioxide 16 L BUN 28 H Creatinine 1.14 Glucose 130 H Calcium 8.4 L - ABG Interpretation ABG results: PT/INR, D-dimer PT 22.6 Seconds (9.4-12.1) H 06/03/17 05:34 - VTE Documentation of Mechanical Device: Intermittent pneumatic compression device Consult Discharge Plan - Plan Referrals: Anais Good CNP [Primary Care Provider] - 06/07/17 1:00 pm
[2017-06-03 11:46] LABS: IFE Reflexed NOT DONE
[2017-06-03] MEDS ORDERED: Ampicillin 2 GM in 0.9 % Sodium Chloride Mini Bag 100 ML IVPB SCH (12:00)
[2017-06-03] MEDS: Ampicillin 2 GM in 0.9 % Sodium Chloride Mini Bag 100 ML IVPB SCH ×3 (12:57→23:17)
[2017-06-03] MEDS ORDERED: Meropenem 1,000 MG in Water for inj. (sterile) 10 ML IVP SCH (16:00)
[2017-06-03] MEDS: Meropenem 1,000 MG in Water for inj. (sterile) 10 ML IVP SCH (16:23)
[2017-06-04] MEDS: Meropenem 1,000 MG in Water for inj. (sterile) 10 ML IVP SCH ×2 (03:16→16:53)
[2017-06-04] MEDS: Ampicillin 2 GM in 0.9 % Sodium Chloride Mini Bag 100 ML IVPB SCH (05:24)
[2017-06-04] MEDS: Lactobacillus 1 EACH CAP.SPRINK PO SCH ×4 (07:27→22:35)
[2017-06-04] MEDS: Insulin LISPRO 300 UNITS/3 ML VIAL SQ SCH ×4 (07:27→22:34)
[2017-06-04 08:15] LABS: Basophils % 0.2 %
[2017-06-04 08:16] LABS: INR 1.8; Prothrombin Time 19.6 Seconds (9.4-12.1)
[2017-06-04 08:17] LABS: Basophils # 0.1 K/mcL (0.0-0.2); Eosinophils # 0.3 K/mcL (0.0-0.6); Eosinophils % 1.2 %; Hemoglobin 9.7 g/dL (11.5-15.4); Lymphocytes # 1.5 K/mcL (0.6-4.6); Lymphocytes % 5.6 %; Mean Corpuscular HGB Conc 32.3 g/dL (31.6-35.5); Mean Corpuscular Hemoglobin 29.8 pg (28.0-33.3); Mean Corpuscular Volume 92.3 fL (83.0-100.0); Mean Platelet Volume 12.5 fL (9.4-12.4); Monocytes # 0.9 K/mcL (0.0-1.3); Monocytes % 3.5 %; Neutrophils # 23.5 K/mcL (1.6-8.9); Red Blood Count 3.25 M/mcL (3.82-4.97); Red Cell Distribution Width 18.5 % (11.5-14.5); Segmented Neutrophils % 87.5 %
[2017-06-04 08:18] LABS: Platelet Count 93 K/mcL (140-400)
[2017-06-04] MEDS ORDERED: 0.9 % Sodium Chloride 250 ML ONE (08:18)
[2017-06-04 08:59] LABS: Platelet Estimate Decreased (Normal); Smudge Cells Present (Not Present)
--- NOTE | 2017-06-04 09:27 | Internal Med Progress Note ---
Date of Encounter: 06/04/17 Time of Encounter: 09:24 - Assessment and plan (1) Leukocytosis Current Visit: Yes Status: Acute Assessment and plan: With neurtrophilia. Urine culture sensitivities returned 06/03/17. Will switch to Ampicillin and merropenem. monitor closely. 06/04/17 white count continues to elevate, now 26 (was 20 yesterday). She is at her normal HR, slight hypotension. Previous cultures pending. On merro and Ampicillin based on UTI sensitivity. Will need to add vanc to cover MRSA in case infection elsewhere. Will repeat blood cultures today. She is afebrile, but theres concern for sepsis given drug resistant UTI. Qualifiers: Leukocytosis type: unspecified Qualified Code(s): D72.829 - Elevated white blood cell count, unspecified (2) Rectal bleeding Current Visit: Yes Status: Acute Assessment and plan: GI was consulted. Hemoglobin without any acute drop, slowly trending down but patient on fluids. Fluids were held and hemoglobin improved at 9.3, likely there was some dilutional component in the past few days. Hemodynamically stable. No plans for any GI intervention as they believe this is likely trauma from enema. Continue to monitor her hemodynamics. Prior to admission she had constipation requiring enema. She had BRPBR, and given stool softener. Patient now having loose stools. They are brown and not water-like. Likely from lactulose but given she is a chronically ill patient admitted in a hospital, we will check for c diff as well. 06/03; Diarrhea improving after holding lactulose. Less likely infectious cause of diarrhea. C diff results pending. (3) LICHA (acute kidney injury) Current Visit: Yes Status: Acute Assessment and plan: Has improved. Follow-up daily BMP. Avoid nephrotoxins. (4) Metastatic cancer Current Visit: Yes Status: Acute Assessment and plan: The patient has metastatic lesions on the liver and possibly the pancreas. Primary is possibly depressed. Could be another primary. The family wants to proceed with a biopsy. Was unable to do it on 05/31 because of to elevated INR. The plan is to have FFP being given, and INR level today is pending. Biopsy IR guided possibly today. Need IR biopsy. This may be delayed because of holiday weekend. Will attempt for INR for <1.5, likely elevated because of liver function. She is not on any anticoagulants. Will try small dose of PO vitamin K and recheck INR tomorrow. This may not be helpful if patient does not have coagulation factors produced. (5) Breast cancer Current Visit: Yes Status: Acute Assessment and plan: Seems to have metastasis to liver cancer or a new primary. Seen by oncology and palliative. Based on documentation this is been diagnosed about 10 years ago. Qualifiers: Breast location: unspecified site of breast Estrogen receptor status: unspecified Patient sex: female Laterality: unspecified laterality Qualified Code(s): C50.919 - Malignant neoplasm of unspecified site of unspecified female breast (6) Hypertension Current Visit: Yes Status: Acute Assessment and plan: Continue to hold lisinopril. Hold IV fluids patient is having edema. Qualifiers: Hypertension type: essential hypertension Qualified Code(s): I10 - Essential (primary) hypertension (7) Diabetes Current Visit: Yes Status: Acute Assessment and plan: Continue with insulin sliding scale. Continue with Accu-Cheks. Qualifiers: Diabetes mellitus type: type 2 Diabetes mellitus complication status: without complication Diabetes mellitus half-way insulin use: without half-way use Qualified Code(s): E11.9 - Type 2 diabetes mellitus without complications (8) UTI (urinary tract infection) Current Visit: Yes Status: Acute Assessment and plan: Cultures are positive for Enterobacter and enterococcus which are susceptible to ceftriaxone. 06/03/17 patient had significant leukocytosis in 20k and neutrophilia at 17, sensitivities from urine cultures returned and so Rocephin was discontinued and merropenem and Ampicillin was started. She does not appear septic. Qualifiers: Urinary tract infection type: acute cystitis Hematuria presence: without hematuria Qualified Code(s): N30.00 - Acute cystitis without hematuria - Subjective Interval history: Patient has complaints of loose stools throughout the day. She was initially having severe constipation upon admission at other ED. Started on lactulose here. Stools are loose but brown, not formed. Denies any blood in stool. Lactulose was held. 06/03/17 stools became more formed. she denies fevers/ chills, n/v. WBC count went up today. Sensitivities for enterococcus and enterobacter returned and antibiotics changed to meropenem and ampicillin. - Constitutional Vitals: Temp Pulse Resp BP Pulse Ox 97.4 F L 73 16 91/51 100 06/04/17 09:05 01/02/18 09:05 06/04/17 09:05 06/04/17 09:05 06/04/17 08:50 General appearance: Present: A&O X 3, no acute distress, answers questions appropriately Exam: CVS: RRR Lungs: CTAB Ext: 2+ bipedal pitting edema Internal Medicine: Result - Labs CBC & Chem 7: 06/04/17 07:00 06/04/17 07:00 Labs: Short CBC 06/04/17 Range/Units 07:00 WBC 26.9 H (4.3-11.1) K/mcL Hgb 9.7 L D (11.5-15.4) g/dL Hct 30.0 L (35.3-44.9) % Plt Count 93 L (140-400) K/mcL Neutrophils # 23.5 H (1.6-8.9) K/mcL - ABG Interpretation ABG results: PT/INR, D-dimer PT 19.6 Seconds (9.4-12.1) H 06/04/17 07:00 - Impressions Impressions Chest X-Ray 06/03/17 08:24 IMPRESSION: Moderate right-sided pleural effusion, new since the prior exam. Adjacent basilar opacity, atelectasis versus pneumonia. Radiographic follow-up to resolution is suggested. Hiatal hernia. Persistent right hemidiaphragm elevation, consider hemiparesis. D/ / 06/03/2017 09:29:31 Mannie Duggan MD / [facility] Interpreting Provider: Mannie Duggan MD - VTE Documentation of Mechanical Device: Intermittent pneumatic compression device Consult Discharge Plan - Plan Referrals: Anais Good CNP [Primary Care Provider] - 06/07/17 1:00 pm
[2017-06-04] MEDS ORDERED: 0.9 % Sodium Chloride 1,000 ML IVC SCH (09:30)
[2017-06-04 09:38] LABS: Calcium 8.1 mg/dL (8.6-10.3); Potassium 3.6 mEq/L (3.5-5.1)
--- NOTE | 2017-06-04 09:42 | Oncology Inp Progress Note ---
Date of Encounter: 06/04/17 Time of Encounter: 09:42 (1) Breast cancer Current Visit: Yes Status: Acute Assessment and plan: Patient had received treatment in 2009 for history of breast cancer including surgery and radiation therapy per patient, chemotherapy declined. Liver lesions--diffuse/multiple with pancreatic lesion. CA19-9 elevation-r/o pancreatic/biliary primary. Unable to obtain liver biopsy to this date due to elevated INR. 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 Leukocytosis with neutrohilia, most likely infectious/septic etiology. Rectal bleeding upon admission with no recent events, monitor hgb/hct, stable 9.7 . SPEP- no monoclonal proteins, Iron deficient with serum iron 21. Had a detailed discussion with patient, patients son Neal and Nasrin, palliative care INSURANCE FOLLOW UP SPECIALIST at bedside today. Discussed radiographic and laboratory findings concerning for malignancy which could be of pancreatic, liver or breast primary. Given current performance status and medical status concerning for sepsis, oncologic treatment options would be limited depending on definitive diagnosis. Discussed liver biopsy procedure, and risks vs. benefits of procedure. Ultimately, patient and patients son decided to decline liver biopsy and focus on comfort care measures. Palliative care and social services designee to assist with transition home with comfort measures and symptom management. Patient and patients son wish to no longer pursue biopsy or further oncology treatment measures at this time, oncology will sign off at this time, will be happy to consult further for any questions or concerns. Qualifiers: Breast location: unspecified site of breast Estrogen receptor status: unspecified Patient sex: female Laterality: unspecified laterality Qualified Code(s): C50.919 - Malignant neoplasm of unspecified site of unspecified female breast Oncology: Subj Interval history: Resting comfortably, denies pain. Liver biopsy not performed over weekend, receiving FFP. Mental status appears to have somewhat declined, patient does not recall discussion regarding CT findings concerning for malignancy and discussions regarding liver biopsy. Meeting with patient, patients son Neal and Nasrin with palliative team resulting in decision to decline liver biopsy and heroic measure at this juncture - Constitutional Vitals: Vital Signs Temp Pulse Resp BP Pulse Ox 06/04/17 09:05 97.4 F L 73 16 91/51 06/04/17 08:50 97.8 F 73 16 100 06/04/17 07:20 98.4 F 78 16 115/68 06/04/17 05:06 98.1 F 76 16 97/66 98 06/03/17 23:49 98.2 F 80 16 98/70 98 06/03/17 19:40 97.9 F 79 16 95/68 96 06/03/17 16:47 97.3 F L 74 16 96/56 98 06/03/17 12:21 97.5 F L 79 16 85/57 99 Intake and Output 06/03/17 06/04/17 06/04/17 23:59 07:59 15:59 Intake Total 110 / 110 310 / 310 0 / 0 Output Total 150 / 150 Balance 110 / 110 160 / 160 0 / 0 Intake: IV Fluids 110 / 110 210 / 210 Merrem 1,000 MG In Water for 10 inj. (sterile) 10 ML @ 200 mls/ hr IVP Q12H [facility] Rx#:[id number] Ampicillin 2 GM In 0.9 % Sodium 100 / 100 200 / 200 Chloride (Mini-Bag +) 100 ML @ 200 mls/hr IVPB Q6HR [facility] Rx#: [id number] Oral 0 / 0 100 / 100 Blood Product 0 / 0 0 / 0 Plasma Unit [id number] 0 / 0 Plasma Unit [id number] 0 / 0 Output: Catheter 150 / 150 Other: Meal Refused Percent of Meal Consumed 0% Stool Size Small Stool Consistency liquid Stool Characteristics Normal for Patient Stool Color Brown # Bowel Movement Diapers 1 Blood Glucose* 77 80 General appearance: cooperative, no acute distress, no febrile - Head Head exam: Present: normal inspection - Eye Eye exam: Present: PERRL - ENT ENT exam: Present: mucous membranes moist - Respiratory Respiratory exam: Present: CTAB. Absent: respiratory distress - Cardiovascular Cardiovascular exam: Present: RRR - GI/Abdominal GI/Abdominal exam: Present: normal bowel sounds, soft. Absent: guarding, tenderness - Extremities Exam Extremities exam: Present: pedal edema - Expanded Lower Extremity Exam Lower leg exam: Present: swelling - Neurological Exam Neurological exam: Present: alert, oriented X3, strengths equal and symetr throughout. Absent: no focal deficits - Psychiatric Psychiatric exam: Present: normal mood - Skin Skin exam: Present: normal color - Additional findings Additional findings: Breast exam: Left breast without palpable mass/nodule, no skin or nipple changes noted. Right breast with significant skin thickening surrounding and involving areola, discoloration of dark erythema extending from areola to bilateral lower breast quadrants with peau d'orange appearance Oncology: Obj Data - Labs CBC & Chem 7: 06/04/17 07:00 06/04/17 07:00 - ABG Interpretation ABG results: PT/INR, D-dimer PT 19.6 Seconds (9.4-12.1) H 06/04/17 07:00 Consult Discharge Plan - Plan Referrals: Anais Good CNP [Primary Care Provider] - 06/07/17 1:00 pm
--- NOTE | 2017-06-04 12:10 | Palliative Progress Note ---
Date of Encounter: 06/04/17 Time of Encounter: 10:30 - Assessment and plan (1) Counseling regarding advanced care planning and goals of care Current Visit: Yes Status: Acute Assessment and plan: Spoke with pt son, Neal via telephone. Update on clinical status. D/W Christine August DIRECTOR OF [employer]ATE[employer] MANAGEMENT oncology. Will hopefully be able to meet with son this afternoon and discuss plan. Still has not had biopsy r/t INR. She is not eating well, appears weaker. If/when she is discharged, Neal is open to taking her home with hospice care and hopefully getting passport hours increased. Appears at this point, with her decreasing performance status, she would likely not be eligible for treatment. D/W Dr. Batista. Will f/u later today. (2) Constipation Current Visit: Yes Status: Acute Assessment and plan: + bm's. Continue Lactulose Qualifiers: Constipation type: unspecified constipation type Qualified Code(s): K59.00 - Constipation, unspecified (3) Breast cancer Current Visit: Yes Status: Acute Qualifiers: Breast location: unspecified site of breast Estrogen receptor status: unspecified Patient sex: female Laterality: unspecified laterality Qualified Code(s): C50.919 - Malignant neoplasm of unspecified site of unspecified female breast (4) UTI (urinary tract infection) Current Visit: Yes Status: Acute Qualifiers: Urinary tract infection type: acute cystitis Hematuria presence: without hematuria Qualified Code(s): N30.00 - Acute cystitis without hematuria (5) Metastatic cancer Current Visit: Yes Status: Acute - Time Spent With Patient Total time spent is greater than 50% in coordination of care (as documented) at patient's floor/unit and/or counseling patient: - Subjective Interval history: Patient awake and alert. Biopsy still has not been completed - FFP currently infusing. Denies pain discomfort. Patient did not remember me from last week, appears to not recall information given about the cancer and biopsy. Rediscussed clinical status with her. Significant increase in WBC over last few days. Not tachycardic, afebrile. Continues on IV antibiotics. - Constitutional Vitals: Abnormal lab results WBC 26.9 K/mcL (4.3-11.1) H 06/04/17 07:00 RBC 3.25 M/mcL (3.82-4.97) L 06/04/17 07:00 Hgb 9.7 g/dL (11.5-15.4) L D 06/04/17 07:00 Hct 30.0 % (35.3-44.9) L 06/04/17 07:00 RDW 18.5 % (11.5-14.5) H 06/04/17 07:00 Plt Count 93 K/mcL (140-400) L 06/04/17 07:00 MPV 12.5 fL (9.4-12.4) H 06/04/17 07:00 Reticulocyte # 0.13 M/mcL (0.05-0.10) H 05/31/17 04:46 Neutrophils # 23.5 K/mcL (1.6-8.9) H 06/04/17 07:00 Nucleated RBCs/100 WBC 0.2 /100 WBC (0) H 05/31/17 04:46 Smudge Cells Present (Not Present) A 06/04/17 07:00 Platelet Estimate Decreased (Normal) L 06/04/17 07:00 Immature Plt Fraction 9.3 % (1.1-6.1) H 06/03/17 05:34 Polychromasia 1+ (Not Present) A 06/03/17 05:34 Anisocytosis 1+ (Not Present) A 06/03/17 05:34 Macrocytosis Present (Not Present) A 05/31/17 04:46 Tear Drop Cells 1+ (Not Present) A 06/03/17 05:34 [place] Cells 3+ (Not Present) A 06/03/17 05:34 Percent Retic 4.2 % (1.6-2.8) H 05/31/17 04:46 PT 19.6 Seconds (9.4-12.1) H 06/04/17 07:00 Sodium 134 mEq/L (136-145) L 06/04/17 07:00 Carbon Dioxide 15 mEq/L (23-29) L 06/04/17 07:00 BUN 33 mg/dL (8-23) H 06/04/17 07:00 Creatinine 1.42 mg/dL (0.60-1.20) H 06/04/17 07:00 Est GFR ( Amer) 43 (> 60) L 06/04/17 07:00 Est GFR (Non-Af Amer) 35 (> 60) L 06/04/17 07:00 POC Glucose 52 (58-89) L 06/04/17 11:15 Calcium 8.1 mg/dL (8.6-10.3) L 06/04/17 07:00 Magnesium 1.5 mg/dL (1.6-2.6) L 05/28/17 06:52 Iron 21 mcg/dL (50-170) L 05/31/17 04:46 % Saturation 14 % (15-50) L 05/31/17 04:46 Transferrin 108 mg/dL (203-362) L 05/31/17 04:46 Ferritin > 1350 ng/ml (10-120) H 05/31/17 04:46 Total Bilirubin 2.6 mg/dL (0.3-1.0) H 05/31/17 10:25 Direct Bilirubin 1.6 mg/dL (0.0-0.2) H 05/28/17 09:04 Alkaline Phosphatase 440 Units/L (34-104) H 05/31/17 10:25 Serum Total Protein 5.1 g/dL (6.4-8.9) L 05/31/17 10:25 Total Protein (PEP) 5.00 g/dL (6.00-8.30) L 05/31/17 04:46 Albumin 2.1 g/dL (3.5-5.7) L 05/31/17 10:25 Albumin (PEP) 1.89 g/dL (3.75-5.01) L 05/31/17 04:46 Albumin/Globulin Ratio 0.7 (1.1-2.2) L 05/31/17 10:25 Ugpeb-5-Sssnjyiif 0.62 g/dL (0.19-0.46) H 05/31/17 04:46 CA 19-9 Antigen 87606 U/mL (0-37) H 05/28/17 09:04 Vitamin B12 3224 pg/mL (250-1100) H 05/31/17 04:46 Urine Clarity Turbid (Clear) A 05/28/17 09:55 Urine Protein 100 mg/dL (Neg-Trace) H 05/28/17 09:55 Urine Ketones Trace mg/dL (Negative) H 05/28/17 09:55 Urine Blood Large (Negative) H 05/28/17 09:55 Urine Nitrite Positive (Negative) A 05/28/17 09:55 Urine Bilirubin Moderate (Negative) H 05/28/17 09:55 Ur Leukocyte Esterase Large (Negative) H 05/28/17 09:55 Urine Microscopic WBC TNTC per hpf (0-3) H 05/28/17 09:55 Ur Squamous Epith Cells Many per lpf (None-Few) H 05/28/17 09:55 Urine Bacteria Many per hpf (None-Few) H 05/28/17 09:55 Granular Casts Present per lpf (None Seen) H 05/28/17 09:55 Urine Yeast Present per hpf (None Seen) H 05/28/17 09:55 Free [place] LC, Quant 6.19 mg/dL (0.33-1.94) H 05/31/17 04:46 Free Lambda LC, Quant 7.07 mg/dL (0.57-2.63) H 05/31/17 04:46 General appearance: Present: no acute distress - Respiratory Respiratory exam: Present: decreased breath sounds - Cardiovascular Cardiovascular exam: Present: +S1, +S2 - GI/Abdominal GI/Abdominal exam: Present: distended, normal bowel sounds, soft - Extremities Exam Additional comments: 3-4+ bilateral edema lower extremities - Neurological Exam Neurological exam: Present: alert (Oriented to name and place, generalized weakness) Palliative Quality Palliative Quality: Screen for Code Status: NA (When family available), Screen for Goals of Care: NA, Screen for Pain: Yes, If Pain Regimen Started, Initiate Bowel Regimen: NA, Screen for Nausea/Vomitting: Yes Code Status: 05/27/17 22:40 Resuscitation Status: Active [RES] Routine Comment: Resuscitation Status: Full Code 05/30/17 12:52 DNR [Resuscitation Status: Active] [RES] Routine Comment: Resuscitation Status: [id number] - Labs CBC & Chem 7: 06/04/17 07:00 06/04/17 07:00 Labs: Laboratory Results - last 24 hr 05/31/17 06/03/17 06/03/17 04:46 12:21 16:52 WBC RBC Hgb Hct MCV MCH MCHC RDW Plt Count MPV Immature Gran % Seg Neutrophils % Lymphocytes % Monocytes % Eosinophils % Basophils % Neutrophils # Lymphocytes # Monocytes # Eosinophils # Basophils # Smudge Cells Platelet Estimate PT INR Sodium Potassium Chloride Carbon Dioxide BUN Creatinine Est GFR ( Amer) Est GFR (Non-Af Amer) BUN/Creatinine Ratio Glucose POC Glucose 149 H 86 Calculated Osmolality Calcium Stl C. diff Tox B Gene Blood Type A POSITIVE Antibody Screen NEGATIVE 06/04/17 06/04/17 06/04/17 07:00 07:00 07:00 WBC 26.9 H RBC 3.25 L Hgb 9.7 L D Hct 30.0 L MCV 92.3 MCH 29.8 MCHC 32.3 RDW 18.5 H Plt Count 93 L MPV 12.5 H Immature Gran % 2.0 Seg Neutrophils % 87.5 Lymphocytes % 5.6 Monocytes % 3.5 Eosinophils % 1.2 Basophils % 0.2 Neutrophils # 23.5 H Lymphocytes # 1.5 Monocytes # 0.9 Eosinophils # 0.3 Basophils # 0.1 Smudge Cells Present A Platelet Estimate Decreased L PT 19.6 H INR 1.8 Sodium 134 L Potassium 3.6 Chloride 107 Carbon Dioxide 15 L BUN 33 H Creatinine 1.42 H Est GFR ( Amer) 43 L Est GFR (Non-Af Amer) 35 L BUN/Creatinine Ratio 23 Glucose 80 POC Glucose Calculated Osmolality 284 Calcium 8.1 L Stl C. diff Tox B Gene Blood Type Antibody Screen 06/04/17 06/04/17 07:50 11:15 WBC RBC Hgb Hct MCV MCH MCHC RDW Plt Count MPV Immature Gran % Seg Neutrophils % Lymphocytes % Monocytes % Eosinophils % Basophils % Neutrophils # Lymphocytes # Monocytes # Eosinophils # Basophils # Smudge Cells Platelet Estimate PT INR Sodium Potassium Chloride Carbon Dioxide BUN Creatinine Est GFR ( Amer) Est GFR (Non-Af Amer) BUN/Creatinine Ratio Glucose POC Glucose 52 L Calculated Osmolality Calcium Stl C. diff Tox B Gene Negative Blood Type Antibody Screen - Impressions Impressions Chest X-Ray 06/03/17 08:24 IMPRESSION: Moderate right-sided pleural effusion, new since the prior exam. Adjacent basilar opacity, atelectasis versus pneumonia. Radiographic follow-up to resolution is suggested. Hiatal hernia. Persistent right hemidiaphragm elevation, consider hemiparesis. D/ / 06/03/2017 09:29:31 Mannie Duggan MD / [facility] Interpreting Provider: Mannie Duggan MD Chest X-Ray 06/04/17 09:27 IMPRESSION: Stable opacification in the right lower lobe due to moderate-sized right pleural effusion and atelectasis New small left pleural effusion Elevation of the right hemidiaphragm unchanged Hiatal hernia D/ / 06/04/2017 10:39:55 Jordi Ramirez MD / [facility] Interpreting Provider: Jordi Ramirez MD - ABG Interpretation ABG results: PT/INR, D-dimer PT 19.6 Seconds (9.4-12.1) H 06/04/17 07:00 Consult Discharge Plan - Plan Referrals: Anais Good CNP [Primary Care Provider] - 06/07/17 1:00 pm
[2017-06-04] MEDS ORDERED: 0.9 % Sodium Chloride 250 ML IVC ONE ×2 (20:56→22:21)
[2017-06-05] MEDS: Meropenem 1,000 MG in Water for inj. (sterile) 10 ML IVP SCH (03:56)
[2017-06-05] MEDS: Lactobacillus 1 EACH CAP.SPRINK PO SCH ×2 (08:09→13:56)
[2017-06-05] MEDS: Insulin LISPRO 300 UNITS/3 ML VIAL SQ SCH ×2 (08:11→13:52)
--- NOTE | 2017-06-05 09:45 | Palliative Progress Note ---
Date of Encounter: 06/05/17 Time of Encounter: 09:10 - Assessment and plan (1) Counseling regarding advanced care planning and goals of care Current Visit: Yes Status: Acute Assessment and plan: D/W Dr. Batista, [facility], pt son Neal and pt. She can be discharged this afternoon and [facility] will enroll her later today (5-6pm) at home per son' s request after his appt. DNR state form completed. Prescriptions for Roxanol, Ativan, Senokot, and Compazine faxed to pharmacy. (2) Constipation Current Visit: Yes Status: Acute Qualifiers: Constipation type: unspecified constipation type Qualified Code(s): K59.00 - Constipation, unspecified (3) Breast cancer Current Visit: Yes Status: Acute Qualifiers: Breast location: unspecified site of breast Estrogen receptor status: unspecified Patient sex: female Laterality: unspecified laterality Qualified Code(s): C50.919 - Malignant neoplasm of unspecified site of unspecified female breast (4) UTI (urinary tract infection) Current Visit: Yes Status: Acute Qualifiers: Urinary tract infection type: acute cystitis Hematuria presence: without hematuria Qualified Code(s): N30.00 - Acute cystitis without hematuria (5) Metastatic cancer Current Visit: Yes Status: Acute Assessment and plan: Per conversation yesterday, no further investigation or biopsy. Pt remains decided to go home with hospice care today. - Time Spent With Patient Total time spent is greater than 50% in coordination of care (as documented) at patient's floor/unit and/or counseling patient: - Subjective Interval history: Patient awake and alert. Denies complaints other than "sore backside". NO family present - Constitutional Vitals: Abnormal lab results WBC 26.9 K/mcL (4.3-11.1) H 06/04/17 07:00 RBC 3.25 M/mcL (3.82-4.97) L 06/04/17 07:00 Hgb 9.7 g/dL (11.5-15.4) L D 06/04/17 07:00 Hct 30.0 % (35.3-44.9) L 06/04/17 07:00 RDW 18.5 % (11.5-14.5) H 06/04/17 07:00 Plt Count 93 K/mcL (140-400) L 06/04/17 07:00 MPV 12.5 fL (9.4-12.4) H 06/04/17 07:00 Reticulocyte # 0.13 M/mcL (0.05-0.10) H 05/31/17 04:46 Neutrophils # 23.5 K/mcL (1.6-8.9) H 06/04/17 07:00 Nucleated RBCs/100 WBC 0.2 /100 WBC (0) H 05/31/17 04:46 Smudge Cells Present (Not Present) A 06/04/17 07:00 Platelet Estimate Decreased (Normal) L 06/04/17 07:00 Immature Plt Fraction 9.3 % (1.1-6.1) H 06/03/17 05:34 Polychromasia 1+ (Not Present) A 06/03/17 05:34 Anisocytosis 1+ (Not Present) A 06/03/17 05:34 Macrocytosis Present (Not Present) A 05/31/17 04:46 Tear Drop Cells 1+ (Not Present) A 06/03/17 05:34 [place] Cells 3+ (Not Present) A 06/03/17 05:34 Percent Retic 4.2 % (1.6-2.8) H 05/31/17 04:46 PT 19.6 Seconds (9.4-12.1) H 06/04/17 07:00 Sodium 134 mEq/L (136-145) L 06/04/17 07:00 Carbon Dioxide 15 mEq/L (23-29) L 06/04/17 07:00 BUN 33 mg/dL (8-23) H 06/04/17 07:00 Creatinine 1.42 mg/dL (0.60-1.20) H 06/04/17 07:00 Est GFR ( Amer) 43 (> 60) L 06/04/17 07:00 Est GFR (Non-Af Amer) 35 (> 60) L 06/04/17 07:00 POC Glucose 128 (58-89) H 06/04/17 20:03 Calcium 8.1 mg/dL (8.6-10.3) L 06/04/17 07:00 Magnesium 1.5 mg/dL (1.6-2.6) L 05/28/17 06:52 Iron 21 mcg/dL (50-170) L 05/31/17 04:46 % Saturation 14 % (15-50) L 05/31/17 04:46 Transferrin 108 mg/dL (203-362) L 05/31/17 04:46 Ferritin > 1350 ng/ml (10-120) H 05/31/17 04:46 Total Bilirubin 2.6 mg/dL (0.3-1.0) H 05/31/17 10:25 Direct Bilirubin 1.6 mg/dL (0.0-0.2) H 05/28/17 09:04 Alkaline Phosphatase 440 Units/L (34-104) H 05/31/17 10:25 Serum Total Protein 5.1 g/dL (6.4-8.9) L 05/31/17 10:25 Total Protein (PEP) 5.00 g/dL (6.00-8.30) L 05/31/17 04:46 Albumin 2.1 g/dL (3.5-5.7) L 05/31/17 10:25 Albumin (PEP) 1.89 g/dL (3.75-5.01) L 05/31/17 04:46 Albumin/Globulin Ratio 0.7 (1.1-2.2) L 05/31/17 10:25 Nmfnt-5-Hqmxhnkne 0.62 g/dL (0.19-0.46) H 05/31/17 04:46 CA 19-9 Antigen 98760 U/mL (0-37) H 05/28/17 09:04 Vitamin B12 3224 pg/mL (250-1100) H 05/31/17 04:46 Urine Clarity Turbid (Clear) A 05/28/17 09:55 Urine Protein 100 mg/dL (Neg-Trace) H 05/28/17 09:55 Urine Ketones Trace mg/dL (Negative) H 05/28/17 09:55 Urine Blood Large (Negative) H 05/28/17 09:55 Urine Nitrite Positive (Negative) A 05/28/17 09:55 Urine Bilirubin Moderate (Negative) H 05/28/17 09:55 Ur Leukocyte Esterase Large (Negative) H 05/28/17 09:55 Urine Microscopic WBC TNTC per hpf (0-3) H 05/28/17 09:55 Ur Squamous Epith Cells Many per lpf (None-Few) H 05/28/17 09:55 Urine Bacteria Many per hpf (None-Few) H 05/28/17 09:55 Granular Casts Present per lpf (None Seen) H 05/28/17 09:55 Urine Yeast Present per hpf (None Seen) H 05/28/17 09:55 Free [place] LC, Quant 6.19 mg/dL (0.33-1.94) H 05/31/17 04:46 Free [place] LC, Quant 7.07 mg/dL (0.57-2.63) H 05/31/17 04:46 General appearance: Present: no acute distress - Respiratory Respiratory exam: Present: decreased breath sounds - Cardiovascular Cardiovascular exam: Present: +S1, +S2 - GI/Abdominal GI/Abdominal exam: Present: diminished bowel sounds, soft - Additional comments: [place] patent and draining well - Extremities Exam Additional comments: 3-4+ edema bilateral lower extremities - Neurological Exam Neurological exam: Present: alert, oriented X3 Additional comments: generalized weakness - Skin Skin exam: Present: dry, warm Palliative Quality Palliative Quality: Screen for Code Status: NA (When family available), Screen for Goals of Care: NA, Screen for Pain: Yes, If Pain Regimen Started, Initiate Bowel Regimen: NA, Screen for Nausea/Vomitting: Yes Code Status: 06/04/17 15:30 DNR [Resuscitation Status: Active] [RES] Routine Comment: Resuscitation Status: DNR-Comfort Care 05/27/17 22:40 Resuscitation Status: Active [RES] Routine Comment: Resuscitation Status: Full Code 05/30/17 12:52 DNR [Resuscitation Status: Active] [RES] Routine Comment: Resuscitation Status: [id number] - Labs CBC & Chem 7: 06/04/17 07:00 06/04/17 07:00 Labs: Laboratory Results - last 24 hr 05/31/17 06/03/17 06/04/17 04:46 19:46 07:27 POC Glucose 77 80 Stl C. diff Tox B Gene Blood Type A POSITIVE Antibody Screen NEGATIVE 06/04/17 06/04/17 06/04/17 07:50 11:15 12:40 POC Glucose 52 L 112 H Stl C. diff Tox B Gene Negative Blood Type Antibody Screen 06/04/17 06/04/17 17:00 20:03 POC Glucose 109 H 128 H Stl C. diff Tox B Gene Blood Type Antibody Screen - Impressions Impressions Chest X-Ray 06/03/17 08:24 IMPRESSION: Moderate right-sided pleural effusion, new since the prior exam. Adjacent basilar opacity, atelectasis versus pneumonia. Radiographic follow-up to resolution is suggested. Hiatal hernia. Persistent right hemidiaphragm elevation, consider hemiparesis. D/ / 06/03/2017 09:29:31 Mannie Duggan MD / [facility] Interpreting Provider: Mannie Duggan MD Chest X-Ray 06/04/17 09:27 IMPRESSION: Stable opacification in the right lower lobe due to moderate-sized right pleural effusion and atelectasis New small left pleural effusion Elevation of the right hemidiaphragm unchanged Hiatal hernia D/ / 06/04/2017 10:39:55 Jordi Rmairez MD / [facility] Interpreting Provider: Jordi Ramirez MD - ABG Interpretation ABG results: PT/INR, D-dimer PT 19.6 Seconds (9.4-12.1) H 06/04/17 07:00 Consult Discharge Plan - Plan Referrals: Anais Good CNP [Primary Care Provider] - 06/07/17 1:00 pm Prescriptions: Prochlorperazine Maleate [Compazine] 10 mg PO Q6HR PRN #10 tablet PRN Reason: Nausea LORazepam Oral Conc [Ativan Oral Conc] 0.5 - 1 mg PO Q4H PRN #15 mls PRN Reason: anxiety/restlessness Morphine Oral CONC [Roxanol] 0.25 ml PO Q1H PRN #15 ml PRN Reason: pain/dyspnea Sennosides/Docusate Sodium [Senna Plus] 1 each PO BID #8 tablet
[2017-06-05 10:24] VITALS: BP 92/60
[2017-06-05] MEDS ORDERED: Acetaminophen 325 MG TABLET PO PRN (11:02)
--- NOTE | 2017-06-05 11:03 | Discharge Summary ---
Date of Encounter: 06/05/17 Time of Encounter: 11:02 - Discharge Diagnosis (1) Rectal bleeding Priority: Primary Status: Resolved Comments: Secondary to constipation and enema. (2) LICHA (acute kidney injury) Priority: Secondary Status: Acute (3) Metastatic cancer Priority: Secondary Status: Acute (4) Breast cancer Priority: Secondary Status: Acute Qualifiers: Breast location: unspecified site of breast Estrogen receptor status: unspecified Patient sex: female Laterality: unspecified laterality Qualified Code(s): C50.919 - Malignant neoplasm of unspecified site of unspecified female breast (5) Leukocytosis Priority: Secondary Status: Acute Comments: Likely from multi-drug resistant UTI. Patient is comfort care only and aggressive measures are withheld. She will go home on Oral antibitics based on sensitivities to maximize treatment. Qualifiers: Leukocytosis type: unspecified Qualified Code(s): D72.829 - Elevated white blood cell count, unspecified (6) Hypertension Priority: Secondary Status: Acute Qualifiers: Hypertension type: essential hypertension Qualified Code(s): I10 - Essential (primary) hypertension (7) UTI (urinary tract infection) Priority: Secondary Status: Acute Qualifiers: Urinary tract infection type: acute cystitis Hematuria presence: without hematuria Qualified Code(s): N30.00 - Acute cystitis without hematuria (8) Diabetes Priority: Secondary Status: Acute Qualifiers: Diabetes mellitus type: type 2 Diabetes mellitus complication status: without complication Diabetes mellitus usp insulin use: without usp use Qualified Code(s): E11.9 - Type 2 diabetes mellitus without complications - Discharge Medications Prescriptions: Prochlorperazine Maleate [Compazine] 10 mg PO Q6HR PRN #10 tablet PRN Reason: Nausea LORazepam Oral Conc [Ativan Oral Conc] 0.5 - 1 mg PO Q4H PRN #15 mls PRN Reason: anxiety/restlessness Morphine Oral CONC [Roxanol] 0.25 ml PO Q1H PRN #15 ml PRN Reason: pain/dyspnea Sennosides/Docusate Sodium [Senna Plus] 1 each PO BID #8 tablet Home Medications: Lactobacillus Acidophilus/Pect [Acidophilus-Pectin Capsule] 2 each PO QID [History] Lisinopril [Zestril] 10 mg PO DAILY 05/27/17 [History] Simvastatin [Zocor] 40 mg PO HS 05/27/17 [History] Aspirin [Lo-Dose Aspirin EC] 81 mg PO DAILY 05/28/17 [History] Potassium Chloride [Klor-Con Sprinkle] 10 meq PO BID 05/28/17 [History] Amoxicillin [Amoxil] 500 mg PO TID 14 Days #42 capsule 06/05/17 [Rx] LORazepam Oral Conc [Ativan Oral Conc] 0.5 - 1 mg PO Q4H PRN #15 mls 06/05/17 [ Rx] Levofloxacin [Levaquin] 750 mg PO Q48H #7 tablet 06/05/17 [Rx] Morphine Oral CONC [Roxanol] 0.25 ml PO Q1H PRN #15 ml 06/05/17 [Rx] Prochlorperazine Maleate [Compazine] 10 mg PO Q6HR PRN #10 tablet 06/05/17 [Rx] Sennosides/Docusate Sodium [Senna Plus] 1 each PO BID #8 tablet 06/05/17 [Rx] Allergies/Adverse Reactions: 3 Allergy/AdvReac Type Severity Reaction Status Date / Time No Known Drug Allergies Allergy Abdominal Verified 05/28/17 00:55 Pain Date of admission: 05/29/17 13:54 Primary care physician: Anais Good, Consults: 05/27/17 22:44 Consult to Gastroenterology [CONS] Routine Consulting Provider: [facility] [place] Reason for Consult: Rectal bleeding Call Completed: No Consult to Palliative Care [CONS] Routine Comment: Consulting Provider: [facility] [place] Reason for Consult: Metastasis cancer Call Completed: No consult to chief pharmacist [Consult to Nutrition] [CONS] Routine Comment: Consulting Provider: NUTRITION Reason for Dietary Consult: PO Supplementation 05/29/17 11:36 Consult to Oncology [CONS] Routine Consulting Provider: [facility] Reason for Consult: h/o breast cancer s/p radiation, elevated ca 19-9, metastatic liver lesions Time Notified: 11:20 Call Completed: Yes 05/30/17 09:04 Consult to Invasive Line Access Team [CONS] Routine Reason for Consult: Peripheral access lost, limited access Line Type: EPIV 05/30/17 09:31 Consult to Interventional Radiology [CONS] Routine Consulting Provider: Radiology Interventional [place] Reason for Consult: CT guided bx of liver/pancreatic lesion Call Completed: Yes 05/30/17 12:44 Consult to Physical Therapy [CONS] Routine Comment: Evaluate, develop and implement POC Reason for Consult: metastatic cancer, deconditioned, increasing weakness 05/30/17 12:49 Consult to Occupational Therapy [CONS] Routine Comment: Evaluate, develop and implement POC Reason for Consult: deconditioned, weakness, Discharging clinician: Rodrigo Batista - Patient Status Disposition: Hospice - Home Condition: Serious Functional capacity at discharge: wheelchair bound Overall status at discharge: patient is not back to baseline - Discharge Instructions Follow Up With: Anais Good CNP [Primary Care Provider] - 06/07/17 1:00 pm - Diet and Activity Activity: increase activity as tolerated Diet: advance to your usual diet Hospital course: Ms. Dumont is a 81 year old female with history of breast cancer 10 years ago, and uterus cancer, diabetes, hypertension, hyperlipidemia, , presented to [facility] emergency room for rectal bleeding. Patient had constipation and was given enema yesterday in [facility] emergency room. Patient was found rectal bleeding with dark blood with clotting since today. The blood is mixed with stool. Patient denies abdominal pain, nausea, or vomiting. No fever. Patient has recent UTI and was treated with Rocephin by [facility]. Patient to report 50 pound body weight loss in last 2 months, with decreased appetite. She was admitted for further treatment. She was given IV fluids and H&H monitored closely. She was started on PPI IV BID. GI was consulted, she was placed on Lactulose BID which resolved constipation. Rectal bleed form trauma did subside. CT scan of abdomen on 05/22/17 shows most likely liver metastasis. Palliative care and Oncology was consulted. Based on patient's performance status, she had limited treatment options. It was unsure if primary cancer was from breast or not. A liver biopsy was best way to evaluate if mets to liver was of breast origin, which could possibly supervisor records change. Patient's family was made aware of her poor prognosis and the invasiveness of the procedure. The family wished to proceed. IR guided liver biopsy was not able to be done because of persistently elevated INR. There was further discussion with the family and family did come to conclusion that she should be comfort care to go home with hospice. This was arranged for patient by Palliative service. She had a UTI on admission and cultures were obtained and she was started on Rocephin. Cultures and sensitivities resulted and based on those she was started on meropenem and ampicillin. Despite culture-specific antibiotics, patient did still develop leukocytosis, possibly due to infection. Further workup was being done for possible worsening infection, but by this time patient was made comfort care and request was made to stop checking INR and other labs. She was placed on PO antibiotics for discharge home with hospice; levaquin and ampicillin for 14 days to maximize therapy. She was discharged home with hospice. - Time Spent with Patient Total time spent providing and/or coordinating discharge services: - Constitutional Vitals: Temp Pulse Resp BP Pulse Ox 98.9 F 82 15 92/60 95 06/05/17 10:23 06/05/17 10:23 06/05/17 10:23 06/05/17 10:23 06/05/17 10:23 Exam: A&O X 3, no acute distress, answers questions appropriately CVS: RRR Lungs: CTAB Ext: 2+ bipedal pitting edema - VTE Documentation of Mechanical Device: Intermittent pneumatic compression device
--- NOTE | 2017-06-05 11:34 | Physician Discharge Referral ---
Home Health/Hosp Referral Info Transfer to: Hospice Provider in Charge Post Discharge: [employer] Operator - Diagnosis (1) Metastatic cancer Priority: Primary Status: Acute (2) Rectal bleeding Priority: Secondary Status: Resolved (3) LICHA (acute kidney injury) Priority: Secondary Status: Acute (4) Breast cancer Priority: Secondary Status: Acute (5) Leukocytosis Priority: Secondary Status: Acute (6) Hypertension Priority: Secondary Status: Acute (7) UTI (urinary tract infection) Priority: Secondary Status: Acute (8) Diabetes Priority: Secondary Status: Acute - Respiratory Orders Smoking Cessation: Smoking cessation has been advised. For more information, call the [place] Tobacco Quit Line at 1-228-VIVP-NOW. - Transfer Medications Prescriptions: Prochlorperazine Maleate [Compazine] 10 mg PO Q6HR PRN #10 tablet PRN Reason: Nausea Amoxicillin [Amoxil] 500 mg PO TID 14 Days #42 capsule Levofloxacin [Levaquin] 750 mg PO Q48H #7 tablet LORazepam Oral Conc [Ativan Oral Conc] 0.5 - 1 mg PO Q4H PRN #15 mls PRN Reason: anxiety/restlessness Morphine Oral CONC [Roxanol] 0.25 ml PO Q1H PRN #15 ml PRN Reason: pain/dyspnea Sennosides/Docusate Sodium [Senna Plus] 1 each PO BID #8 tablet Home Medications: Lactobacillus Acidophilus/Pect [Acidophilus-Pectin Capsule] 2 each PO QID [History] Lisinopril [Zestril] 10 mg PO DAILY 05/27/17 [History] Simvastatin [Zocor] 40 mg PO HS 05/27/17 [History] Aspirin [Lo-Dose Aspirin EC] 81 mg PO DAILY 05/28/17 [History] Potassium Chloride [Klor-Con Sprinkle] 10 meq PO BID 05/28/17 [History] Amoxicillin [Amoxil] 500 mg PO TID 14 Days #42 capsule 06/05/17 [Rx] LORazepam Oral Conc [Ativan Oral Conc] 0.5 - 1 mg PO Q4H PRN #15 mls 06/05/17 [ Rx] Levofloxacin [Levaquin] 750 mg PO Q48H #7 tablet 06/05/17 [Rx] Morphine Oral CONC [Roxanol] 0.25 ml PO Q1H PRN #15 ml 06/05/17 [Rx] Prochlorperazine Maleate [Compazine] 10 mg PO Q6HR PRN #10 tablet 06/05/17 [Rx] Sennosides/Docusate Sodium [Senna Plus] 1 each PO BID #8 tablet 06/05/17 [Rx] Allergies/Adverse Reactions: 3 Allergy/AdvReac Type Severity Reaction Status Date / Time No Known Drug Allergies Allergy Abdominal Verified 05/28/17 00:55 Pain Certification: Further, I certify that my clinical findings support that this patient is homebound (i.e. absences from home require considerable and taxing effort and are for medical reasons or jain services or infrequently or short duration when for other reasons) because: Homebound Reason: Patient requires assistance of a person or device to safely leave home, Leaving home requires considerable and taxing effort due to condition Attestation: My signature below is to certify that this patient is under my care and that I, or nurse practitioner, or a physician's biology laboratory assistant working with me, has a face-to -face encounter with this patient.
--- NOTE | 2017-06-05 13:07 | Event Note ---
Date of Encounter: 06/05/17 Time of Encounter: 13:06 Hospice medical doctor certification of terminal illness: Hospice benefit. Start: 06/05/2017 Hospice benefit. In: +90 days Palliative performance scale: 30% History: Patient with history of breast cancer which may be metastatic to the liver, however it is also distinctly possible that the liver could be pancreatic in origin. In any case the patient has declining markedly over the last several months consequently her performance scale is not adequate for any kind of chemotherapy regardless of breast versus. At this point the patient and family wish to pursue comfort care only. As the patient has no further prospects with regard to this metastatic cancer, as well as her In decline I believe that These findings support a life expectancy of 6 months or less. I attest that I have compose the above narrative based on my review of the patient's medical records, and or on my examination of the patient. Jose Guadalupe Fleming M.D. Associate medical asst. [facility]
[2017-06-06 08:20] LABS: Mycoplasma pneumoniae IgG 0.07 U/L (<=0.09)
== END 2017-06-05 15:15 | disposition hospice, home (50) | DRG 378 ==
LOC: 3ANU
PROVIDERS: ADMIT Internal Medicine; ATTEND Internal Medicine